=== PATIENT | male | born 1960 | race Caucasian/White ===

== ENCOUNTER 2020-04-17 14:41 | Outpatient (REF) | payer OTHER, SELFPAY ==
--- NOTE | 2020-04-17 14:42 | XR_ITS ---
EXAMINATION: BILATERAL AP KNEE STANDING AND LEFT KNEE.. RIGHT KNEE. CLINICAL INFORMATION: Bilateral knee pain COMPARISON: Bilateral knee 07/07/2019 TECHNIQUE: AP bilateral knee and one view of each knee. FINDINGS: There is total bilateral knee arthroplasty with prosthetic components in satisfactory alignment. Endometrial is bodies or fracture. There is no prosthetic loosening. RIGHT KNEE: Total right knee prosthesis is in alignment without any evidence of loosening. No loose bodies seen. There is mild suprapatellar joint effusion. LEFT KNEE: There is total left knee arthroplasty with prosthetic components in satisfactory alignment. There is minimal suprapatellar joint effusion. No loose body seen. XR/XR knee standing BI IMPRESSION: Total bilateral knee arthroplasty in satisfactory alignment. No loosening seen. There is small to moderate right and a small left suprapatellar joint effusion.
--- NOTE | 2020-04-17 14:42 | XR_ITS ---
EXAMINATION: BILATERAL AP KNEE STANDING AND LEFT KNEE.. RIGHT KNEE. CLINICAL INFORMATION: Bilateral knee pain COMPARISON: Bilateral knee 07/07/2019 TECHNIQUE: AP bilateral knee and one view of each knee. FINDINGS: There is total bilateral knee arthroplasty with prosthetic components in satisfactory alignment. Endometrial is bodies or fracture. There is no prosthetic loosening. RIGHT KNEE: Total right knee prosthesis is in alignment without any evidence of loosening. No loose bodies seen. There is mild suprapatellar joint effusion. LEFT KNEE: There is total left knee arthroplasty with prosthetic components in satisfactory alignment. There is minimal suprapatellar joint effusion. No loose body seen. XR/XR knee LT 2V IMPRESSION: Total bilateral knee arthroplasty in satisfactory alignment. No loosening seen. There is small to moderate right and a small left suprapatellar joint effusion.
--- NOTE | 2020-04-17 14:42 | XR_ITS ---
EXAMINATION: BILATERAL AP KNEE STANDING AND LEFT KNEE.. RIGHT KNEE. CLINICAL INFORMATION: Bilateral knee pain COMPARISON: Bilateral knee 07/07/2019 TECHNIQUE: AP bilateral knee and one view of each knee. FINDINGS: There is total bilateral knee arthroplasty with prosthetic components in satisfactory alignment. Endometrial is bodies or fracture. There is no prosthetic loosening. RIGHT KNEE: Total right knee prosthesis is in alignment without any evidence of loosening. No loose bodies seen. There is mild suprapatellar joint effusion. LEFT KNEE: There is total left knee arthroplasty with prosthetic components in satisfactory alignment. There is minimal suprapatellar joint effusion. No loose body seen. XR/XR knee RT 2V IMPRESSION: Total bilateral knee arthroplasty in satisfactory alignment. No loosening seen. There is small to moderate right and a small left suprapatellar joint effusion.
== END 2020-04-17 14:42 | disposition home or self-care (01) ==
LOC: HO.HOSX 14:41
PROVIDERS: PCP Internal Medicine; Visit Provider Orthopaedic Surgery
DX: M25.561 Pain in right knee (principal); M25.562 Pain in left knee; Z96.651 Presence of right artificial knee joint; Z96.652 Presence of left artificial knee joint
CPT/HCPCS: 73560; 73565; 99212

== ENCOUNTER 2021-04-17 12:33 | Outpatient (REF) | payer OTHER, SELFPAY | END 2021-04-17 12:34 | disposition home or self-care (01) | LOC: HO.HOSX 12:33 | PROVIDERS: Visit Provider Physician Assistant | DX: Z13.89 Encounter for screening for other disorder (principal) ==

== ENCOUNTER 2021-05-21 13:58 | Outpatient (REF) | payer OTHER, SELFPAY ==
[2021-05-21 18:58] LABS: Influenza A PCR NEGATIVE (Negative); Influenza B PCR NEGATIVE (Negative); Resp Syncy Virus RNA Qual PCR NEGATIVE (Negative); SARS COV2 PCR INHOUSE POSITIVE (Negative)
== END 2021-05-21 13:59 | disposition home or self-care (01) ==
LOC: HO.LAB 13:58
PROVIDERS: Visit Provider Hospitalist
DX: J06.9 Acute upper respiratory infection, unspecified (principal); Z20.822 Contact with and (suspected) exposure to COVID-19
CPT/HCPCS: 0241U

== ENCOUNTER → 2021-09-25 10:51 | Outpatient (BNVA) | payer OTHER, SELFPAY | PROVIDERS: Visit Provider Physician Assistant | DX: S76.312A Strain of muscle, fascia and tendon of the posterior muscle group at thigh level, left thigh, initial encounter (principal); S90.812A Abrasion, left foot, initial encounter; S90.811A Abrasion, right foot, initial encounter; W20.8XXA Other cause of strike by thrown, projected or falling object, initial encounter | CPT/HCPCS: 99203 ==

== ENCOUNTER → 2021-09-27 09:51 | Outpatient (BNVA) | payer OTHER, SELFPAY | PROVIDERS: Visit Provider Physician Assistant | DX: S76.312A Strain of muscle, fascia and tendon of the posterior muscle group at thigh level, left thigh, initial encounter (principal); S70.312A Abrasion, left thigh, initial encounter; S70.311A Abrasion, right thigh, initial encounter; X58.XXXA Exposure to other specified factors, initial encounter | CPT/HCPCS: 99213 ==

== ENCOUNTER 2022-05-19 04:38 | Emergency (ER) | payer OTHER, SELFPAY ==
--- NOTE | ~2022-05-19 | CT_ITS ---
EXAMINATION: CT ABDOMEN AND PELVIS WITHOUT CONTRAST CLINICAL INFORMATION: Left flank pain. COMPARISON: None TECHNIQUE: Multidetector volumetric imaging was performed from the superior aspect of the liver through the pubic symphysis. Sagittal and coronal reformatted images were obtained on the technologist's workstation. This CT examination was performed using dose optimization techniques as appropriate, variously including the following: *Automated exposure control *Adjustment of mA and/or kV according to patient size (this includes techniques or standardized protocols for targeted exams where dose is matched to indication/reason for exam; i.e. extremities or head) *Use of iterative reconstruction technique DLP: 898 mGy-cm FINDINGS: LUNG BASES: The visualized lung bases are unremarkable. LIVER, GALLBLADDER, AND BILIARY TREE: Hepatic steatosis. No focal liver lesions. No biliary dilatation. Gallbladder unremarkable. PANCREAS: Unremarkable. SPLEEN: Unremarkable. ADRENAL GLANDS: Unremarkable. KIDNEYS AND URETERS: There is a 2 mm calculus in the distal left ureter, 1 cm proximal to the ureterovesical junction associated mild upstream hydroureteronephrosis, periureteral and perinephric stranding. There are additional punctate nonobstructive intrarenal calculi numbering at least one within the left kidney and 3 within the right kidney. BLADDER: Unremarkable. GASTROINTESTINAL TRACT: Mild wall thickening of the distal esophagus and adjacent 6 mm lymph node, likely reactive. The small and large bowel are unremarkable. The appendix is unremarkable. ABDOMINAL WALL: No significant hernia is appreciated. LYMPH NODES: Normal. VASCULAR: Aorta is atherosclerotic but normal caliber. PELVIC VISCERA: Unremarkable. OSSEOUS STRUCTURES: No acute or suspicious osseous abnormalities. Degenerative changes present throughout the lumbar spine, most notably at L1-L2 and L2-L3. CT/CT abdomen pelvis wo IV con IMPRESSION: * There is a 2 mm calculus within the distal LEFT ureter, 1 cm proximal to the ureterovesical junction associated mild upstream hydroureteronephrosis, periureteral and perinephric stranding. * Bilateral nonobstructive punctate intrarenal calculi. * Hepatic steatosis. * Query esophagitis.
[2022-05-19 04:52] VITALS: BP 163/73; PULSE 64; RESP 28; TEMP 36.4; O2SAT 98; BMI 31.4
[2022-05-19 05:07] LABS: Appearance Urine Cloudy; Color Urine Yellow; Glucose Urine UA Negative (Negative); Leukocyte Esterase Urine Negative (Negative); Nitrite Urine Negative (Negative); Specific Gravity - Urine 1.025 (1.005-1.025); UMIC TRIGGER UACC YES; Urine Blood Large (3+) (Negative); Urine Ketones Negative (Negative); Urine Protein Trace mg/dL (Neg-Trace)
[2022-05-19 05:09] LABS: Bacteria Urine None Seen (None Seen); Hyaline Casts Urine 0-2 /LPF (0-2); RBC Urine >20 /HPF (0-2); Squamous Epithelial Cell Urine 0-2 /HPF (0-2); WBC Urine 0-5 /HPF (0-5)
[2022-05-19 05:22] LABS: Hematocrit 46.7 % (42.0-52.0); Hemoglobin 15.3 g/dl (14.0-18.0); Mean Corpuscular HGB Conc 32.8 g/dl (31.0-36.0); Mean Corpuscular Hemoglobin 28.3 pg (27.0-33.0); Mean Corpuscular Volume 86.3 fL (80.0-98.0); Mean Platelet Volume 8.7 fL (9.4-12.4); Platelet Count 269 X10*3/uL (160-400); Red Blood Count 5.41 X10*6/uL (4.60-5.80); Red Cell Distribution Width 14.3 % (11.0-16.0); White Blood Count 13.9 X10*3/uL (4.8-10.8)
[2022-05-19] MEDS: Ketorolac Tromethamine 15 MG/ML VIAL IVPUSH (05:45)
[2022-05-19] MEDS: 0.9 % Sodium Chloride 1,000 ML 999 ML IV (05:45)
[2022-05-19] MEDS: ondansetron HCL 4 MG/2 ML VIAL IVPUSH (05:45)
[2022-05-19 05:47] LABS: Alanine Aminotransferase 31 U/L (0-40); Albumin Level 4.6 g/dL (3.5-5.0); Alkaline Phosphatase 47 U/L (39-117); Anion Gap 17 (12-20); Aspartate Amino Transferase 25 U/L (5-37); Bilirubin Direct 0.2 mg/dL (0.0-0.5); Bilirubin Total 0.6 mg/dL (0.0-1.0); Blood Urea Nitrogen 23 mg/dL (9-16); Calcium 9.6 mg/dL (8.4-10.2); Carbon Dioxide 20 mmol/L (22-29); Chloride 106 mmol/L (96-108); Creatinine Clr Calc Pharmacy 67.4; Estimated Glomerular Filt Rate 52; Glucose Random 168 mg/dL (60-115); Lipase 22 U/L (8-78); Potassium 4.2 mmol/L (3.3-5.1); Sodium 139 mmol/L (135-145)
--- OUTSIDE RECORDS SUMMARY | 2022-05-19 05:59 | XMS_ITS | Continuity of Care Document ---
:1960 Author Organization [facility] Address [address] [place] [address]- Care Team Providers Name Role Phone Arya Merino MD Primary Care Physician Encounter [facility] Date(s): 04/10/20 - 05/10/20 [facility] [address] [place] [address]- Attending Physician: Admtr, Ar8 Allergies, Adverse Reactions, Alerts Substance Reaction Severity Status Pollen Active Immunizations Given and Recorded Vaccine Date Status Refusal Reason influenza virus vaccine, inactivated 03/06/20 Given influenza virus vaccine, inactivated 02/14/19 Given influenza virus vaccine, inactivated 03/12/18 Given influenza virus vaccine, inactivated1 02/18/17 Given influenza virus vaccine, inactivated 03/17/16 Given influenza virus vaccine, inactivated 03/12/15 Given influenza virus vaccine, inactivated 03/03/14 Given influenza virus vaccine, inactivated 02/24/13 Given tetanus/diphtheria/pertussis, acel(Tdap) 07/15/12 Given FluLaval (oldterm)2 01/20/12 Given FluLaval (oldterm)3 02/28/10 Given Tetanus Toxoid Vaccine (oldterm) 05/18/03 Given 1Result Comment: [02/18/2017] [id number] Note: Access Closure3 Admin Note: Access Closure Medications acetaminophen-HYDROcodone 325 mg-5 mg oral tablet 1 tablet, By Mouth, Every 6 hours, PRN as needed for pain, # 30 tablet, 0 Refills, Maintenance, 04/10/20 10:05:00 EST, Tablet, [id number], Partial fill upon patient request, 1 tablet By Mouth Every 6 hours,PRN:as needed for pain, 181, cm, 11/2... Start Date: 04/10/20 Status: OrderedCeleBREX 200 mg oral capsule 1 capsule = 200 mg, By Mouth, Daily, for 90 days, # 90 capsule, 3 Refills, Hard Stop 03/01/21 15:41:00 EDT, 03/06/20 15:41:00 EDT, Capsule, [facility], 181, cm, 03/06/20 15:09:00 EDT, Height Start Date: 03/06/20 Stop Date: 03/01/21 Status: OrderedTylenol 325 mg oral tablet 650 mg, 2, tablet, By Mouth, Every 4 hours, PRN, prn for pain, # 120 tablet, Refills 0, Maintenance,for pain, 04/15/16 15:06:48 Start Date: 04/15/16 Status: Ordered Problem List Condition Effective Dates Status Health Status Informant Allergic rhinitis(Confirmed) Active Anxiety(Confirmed) Active Cervical spondylosis(Confirmed) Active Chronic low back pain(Confirmed) Active Colonoscopy(Confirmed)1 Active Glucose intolerance(Confirmed) Active Erectile dysfunction(Confirmed) 06/07/10 Active 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(Confirmed) 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 Arshad Social History Social History Type Response Smoking Status Never smoker entered on: 03/17/16 Sex
--- OUTSIDE RECORDS SUMMARY | 2022-05-19 05:59 | XMS_ITS | Continuity of Care Document ---
:1960 Author Organization [facility] Address [address] [place] [phone]- Care Team Providers Name Role Phone Arya Merino MD Primary Care Physician Encounter [facility] Date(s): 08/09/21 - 09/08/21 [facility] [address] [place] [id number]- Allergies, Adverse Reactions, Alerts Substance Reaction Severity Status Pollen Active Immunizations Given and Recorded Vaccine Date Status Refusal Reason influenza virus vaccine, inactivated 03/26/21 Given influenza virus vaccine, inactivated 03/06/20 Given influenza virus vaccine, inactivated 02/14/19 Given influenza virus vaccine, inactivated 03/12/18 Given influenza virus vaccine, inactivated1 02/18/17 Given influenza virus vaccine, inactivated 03/17/16 Given influenza virus vaccine, inactivated 03/12/15 Given influenza virus vaccine, inactivated 03/03/14 Given influenza virus vaccine, inactivated 02/24/13 Given SARS-CoV-2 (COVID-19) mRNA-1273 vaccine 09/13/20 Recorded SARS-CoV-2 (COVID-19) mRNA-1273 vaccine 08/14/20 Recorded tetanus/diphtheria/pertussis, acel(Tdap) 07/15/12 Given FluLaval (oldterm)2 01/20/12 Given FluLaval (oldterm)3 02/28/10 Given Tetanus Toxoid Vaccine (oldterm) 05/18/03 Given 1Result Comment: [02/18/2017] [id number] Note: [employer] Admin Note: [employer] Medications acetaminophen 500 mg oral capsule 2 capsule = 1,000 mg, By Mouth, Every 6 hours, PRN for fever, # 120 capsule, 0 Refills, Maintenance,09/17/20 15:24:00 EDT, Capsule, Partial fill upon patient request if the prescription is for a schedule II opioid drug. Start Date: 09/17/20 Status: OrderedCeleBREX 200 mg oral capsule 1 capsule = 200 mg, By Mouth, 2 times a day, for 90 days, # 180 capsule, 3 Refills, Hard Stop 03/21/22 15:26:00 EDT, 03/26/21 15:26:00 EST, Capsule, [facility], 181, cm, 03/26/21 15:08:00 EST, Height Start Date: 03/26/21 Stop Date: 03/21/22 Status: Ordered Problem List Condition Effective Dates Status Health Status Informant Allergic rhinitis(Confirmed) Active Anxiety(Confirmed) Active Cervical spondylosis(Confirmed) Active Chronic low back pain(Confirmed) Active Colonoscopy(Confirmed)1 Active Glucose intolerance(Confirmed) Active Erectile dysfunction(Confirmed) 06/07/10 Active 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 Arshad Social History Social History Type Response Smoking Status Never smoker entered on: 03/17/16 Sex
--- OUTSIDE RECORDS SUMMARY | 2022-05-19 05:59 | XMS_ITS | Continuity of Care Document ---
:1960 Author Organization [facility] Address [address] [place] [address]- Care Team Providers Name Role Phone Arya Merino MD Primary Care Physician [place] [facility] [place] 04[place]05[place]19 [place] 05/11/19 [facility] [address] [place] [address]- [facility] Attending Physician: Easton Brooke MD, I Admitting Physician: Easton Brooke MD, I Referring Physician: Easton Brooke MD, I Allergies, Adverse Reactions, Alerts Substance Reaction Severity Status Pollen Active Immunizations Given and Recorded Vaccine Date Status Refusal Reason influenza virus vaccine, inactivated 02/14/19 Given influenza virus vaccine, inactivated 03/12/18 Given influenza virus vaccine, inactivated1 02/18/17 Given influenza virus vaccine, inactivated 03/17/16 Given influenza virus vaccine, inactivated 03/12/15 Given influenza virus vaccine, inactivated 03/03/14 Given influenza virus vaccine, inactivated 02/24/13 Given tetanus/diphtheria/pertussis, acel(Tdap) 07/15/12 Given FluLaval (oldterm)2 01/20/12 Given FluLaval (oldterm)3 02/28/10 Given Tetanus Toxoid Vaccine (oldterm) 05/18/03 Given 1Result Comment: [02/18/2017] [id number] Note: [employer] Admin Note: [employer] Medications aspirin 325 mg oral tablet 325 mg, 1, tablet, By Mouth, Every 4 hours, Refills 0, Maintenance, 05/02/19 13:12:07 EST Start Date: 05/02/19 Status: OrderedCeleBREX 200 mg oral capsule 1 capsule = 200 mg, By Mouth, Daily, for 90 days, # 90 capsule, 3 Refills, Hard Stop 07/29/19 15:49:57 EDT, 08/03/18 15:49:57 EDT, Capsule Start Date: 08/03/18 Stop Date: 07/29/19 Status: OrderedoxyCODONE 10 mg oral tablet 1 tablet = 10 mg, By Mouth, Every 6 hours, 0 Refills, Maintenance, 05/02/19 13:11:35 EST, Partial fill upon patient request Start Date: 05/02/19 Status: OrderedTylenol 325 mg oral tablet 650 [...] dysfunction(Confirmed) 06/07/10 Active 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(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 Arshad Social History Social History Type Response Smoking Status Never smoker entered on: 03/17/16 Sex
--- OUTSIDE RECORDS SUMMARY | 2022-05-19 05:59 | XMS_ITS | Continuity of Care Document ---
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 Arshad Social History Social History Type Response Smoking Status Never smoker entered on: 03/17/16 Sex
--- OUTSIDE RECORDS SUMMARY | 2022-05-19 05:59 | XMS_ITS | Continuity of Care Document ---
:1960 Author Organization [facility] Address [address] [place] [phone]- Care Team Providers Name Role Phone Arya Merino MD Primary Care Physician Encounter [facility] [place] Date(s): 11/30/19 - 11/30/[address] [address] [facility] Encounter Diagnosis Left low back pain (Final) - 11/30/19 Discharge Disposition: A-D/C Home Attending Physician: Jf Silva DO Admitting Physician: Jf Silva DO Referring Physician: Not on Staff, Referring MD Allergies, Adverse Reactions, Alerts Substance Reaction Severity [...] Vaccine (oldterm) 05/18/03 Given 1Result Comment: [02/18/2017] [id number] Note: [employer] Admin Note: [employer] Medications CeleBREX 200 mg oral capsule 1 capsule = 200 mg, By Mouth, Daily, for 90 days, # 90 capsule, 1 Refills, Hard Stop 06/17/20 9:44:00 EST, 12/20/19 9:44:00 EDT, Capsule, [facility], 181, cm, 05/02/19 12:59:00 EST, Height Start Date: 12/20/19 Stop Date: 06/17/20 Status: OrderedCeleBREX 200 mg oral capsule 1 capsule = 200 mg, By Mouth, Daily, for 90 days, # 90 capsule, 1 Refills, Hard Stop 12/20/19 9:44:00 EDT, 06/23/19 9:44:00 EST, Capsule, [facility], 181, cm, 05/02/19 12:59:00 EST, Height Start Date: 06/23/19 Stop Date: 12/20/19 Status: Orderedlidocaine 5% topical film 1 patch, Topically, Daily, # 10 patch, 0 Refills, Maintenance, 11/30/19 9:12:00 EDT, [id number], 1 patch Topically Daily, 181, cm, 05/02/19 12:59:00 EST, Height Start Date: 11/30/19 Status: OrderedTylenol 325 mg oral tablet 650 [...] dysfunction(Confirmed) 06/07/10 Active 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 Instrum Vital Signs Most recent to oldest 1 2 3 [Reference Range]: Oxygen Saturation [94-100 %] 100 % 98 % 99 % (11/30/19 8:42 AM) (11/30/19 5:58 AM) (11/30/19 3:2 7 AM) Pulse Rate [55-90 bpm] 64 bpm 81 bpm 78 bpm (11/30/19 8:42 AM) (11/30/19 5:58 AM) (11/30/19 3:2 7 AM) Blood Pressure [90-138/55-84 mm 150/87 mm Hg 151/88 mm Hg 144/92 mm Hg Hg] *H* *H* *H* (11/30/19 8:42 AM) (11/30/19 5:58 AM) (11/30/19 3:2 7 AM) Respiratory Rate [16-30 br/min] 20 br/min 18 br/min 16 br/min (11/30/19 8:42 AM) (11/30/19 5:58 AM) (11/30/19 3:2 7 AM) Temperature [96.8-100.4 DegF] 97.8 DegF 97.7 DegF 98 .1 DegF (11/30/19 8:42 AM) (11/30/19 5:58 AM) (11/30/19 3:2 7 AM) Mode of Delivery (Oxygen) Room air Room air Room a ir (11/30/19 8:42 AM) (11/30/19 5:58 AM) (11/30/19 3:2 7 AM) Blood pressure sites Arm, left Arm, left Arm, right (11/30/19 8:42 AM) (11/30/19 5:58 AM) (11/30/19 3:2 7 AM) Temperature Route Oral Oral Oral (11/30/19 8:42 AM) (11/30/19 5:58 AM) (11/30/19 3:2 7 AM) Social History Social History Type Response Smoking Status Never smoker entered on: 03/17/16 Sex
--- OUTSIDE RECORDS SUMMARY | 2022-05-19 05:59 | XMS_ITS | Continuity of Care Document ---
:1960 Author Organization [facility] Address [address] [place] [address]- Care Team Providers Name Role Phone Arya Merino MD Primary Care Physician [place] [facility] [place] [facility] [address] [place] [address]- Encounter Diagnosis Chronic low back pain (Discharge Diagnosis) - 04/30/22 Cervical spondylosis (Discharge Diagnosis) - 04/30/22 Benign hypertension (Discharge Diagnosis) - 04/30/22 Anxiety (Discharge Diagnosis) - 04/30/22 Attending Physician: Arya Merino MD Allergies, Adverse Reactions, Alerts Substance Reaction Severity Status Pollen Active Immunizations Given and Recorded Vaccine Date Status Refusal Reason influenza virus vaccine, inactivated 03/04/22 Given influenza virus vaccine, inactivated 03/26/21 Given influenza virus vaccine, inactivated 03/06/20 Given influenza virus vaccine, inactivated 02/14/19 Given influenza virus vaccine, inactivated 03/12/18 Given influenza virus vaccine, inactivated1 02/18/17 Given influenza virus vaccine, inactivated 03/17/16 Given influenza virus vaccine, inactivated 03/12/15 Given influenza virus vaccine, inactivated 03/03/14 Given influenza virus vaccine, inactivated 02/24/13 Given zoster vaccine, inactivated 05/20/21 Recorded SARS-CoV-2 (COVID-19) mRNA-1273 vaccine 05/20/21 Recorded SARS-CoV-2 (COVID-19) mRNA-1273 vaccine 09/13/20 Recorded SARS-CoV-2 (COVID-19) mRNA-1273 vaccine 09/12/20 Recorded SARS-CoV-2 (COVID-19) mRNA-1273 vaccine 08/14/20 Recorded SARS-CoV-2 (COVID-19) mRNA-1273 vaccine 08/10/20 Recorded tetanus/diphtheria/pertussis, acel(Tdap) 07/15/12 Given FluLaval (oldterm)2 01/20/12 Given FluLaval (oldterm)3 02/28/10 Given Tetanus Toxoid Vaccine (oldterm) 05/18/03 Given 1Result Comment: [02/18/2017] [id number] Note: Jumb[employer]3 Admin Note: [employer] [facility] [place] Medications acetaminophen 500 mg oral capsule 2 capsule = 1,000 mg, By Mouth, Every 6 hours, PRN for fever, # 120 capsule, 0 Refills, Maintenance,09/17/20 15:24:00 EDT, Capsule, Partial fill upon patient request if the prescription is for a schedule II opioid drug. Start Date: 09/17/20 Status: Orderedatorvastatin 40 mg oral tablet 1 tablet = 40 mg, By Mouth, Daily, # 90 tablet, 3 Refills, Maintenance, 03/04/22 16:54:00 EDT, Tablet, [facility]/pharmacy #[id number], Partial fill upon patient request if the prescription is for a schedule II opioid drug., 181, cm, 03/04/22 16:36:00 EDT, Height Start Date: 03/04/22 Status: Orderedazelastine nasal 0.15% spray 2 sprays, Nares, Both, 2 times a day, PRN for allergy symptoms, # 30 mL, 11 Refills, Maintenance, 03/04/22 16:51:00 EDT, [place], [facility]/pharmacy #[id number], Partial fill upon patient request if the prescriptionis for a schedule II opioid drug., 2 sprays Nares... Start Date: 03/04/22 Status: OrderedbusPIRone 7.5 mg oral tablet 1 tablet = 7.5 mg, By Mouth, 2 times a day, # 60 tablet, 2 Refills, Maintenance, 04/30/22 15:28:00 EST, Tablet, [id number], Partial fill upon patient request if the prescription is for a schedule II opioid drug., 181, cm, 04/30/22 15:05:00 EST... Start Date: 04/30/22 Stop Date: 07/29/22 Status: OrderedcloNIDine 0.2 mg oral tablet 0.2 mg, 1, tablet, By Mouth, 2 times a day, # 180 tablet, Refills 3, Tot. Refills 3, Maintenance, 04/02/22 16:43:00 EST, [id number] Partial fill upon patient request if the prescription is for a schedule II o... Start Date: 04/02/22 Status: OrderedFlonase 50 mcg/inh nasal spray 2 sprays, Nares, Both, Daily in AM, # 16 Gm, 11 Refills, Maintenance, 03/04/22 16:52:00 EDT, [place], [facility]/pharmacy #[id number], Partial fill upon patient request if the prescription is for a schedule II opioiddrug., 2 sprays Nares, Both Daily in AM, 181, cm,... Start Date: 03/04/22 Status: OrderedhydrOXYzine hydrochloride 25 mg oral tablet 1 tablet = 25 mg, By Mouth, 4 times a day, PRN for anxiety, # 40 tablet, 1 Refills, Maintenance, 04/30/22 15:28:00 EST, [id number] Partial fill upon patient request if the prescriptionis for a schedule II opioid drug., 181, cm, 04/30... Start Date: 04/30/22 Status: Orderedmeloxicam 15 mg oral tablet 1 tablet = 15 mg, By Mouth, Daily, # 90 tablet, 3 Refills, Maintenance, 04/02/22 16:43:00 EST, Tablet, [facility] Partial fill upon patient request if the prescription is for a schedule II opioid drug., 181, cm, ... Start Date: 04/02/22 Stop Date: 03/28/23 Status: Ordered Problem List Condition Confirmation Course Effective Status Health Informa nt Dates Status Allergic rhinitis Confirmed Active Anxiety Confirmed Active Benign hypertension Confirmed Active Cervical spondylosis Confirmed Active Chronic low back pain Confirmed Active Colonoscopy1 Confirmed Active Generalized Confirmed Active osteoarthritis Glucose intolerance Confirmed Active Erectile dysfunction Confirmed 06/07/10 Active 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 Confirmed Active MCFP current use of Confirmed Active opiate analgesic History of meniscal tear2 Confirmed Active History of total knee Confirmed Active arthroplasty3 Hx of repair of left Confirmed Active rotator cuff Hypercholesterolemia Confirmed Active Ingrown toenail Confirmed Active Knee pain, right Confirmed Active Nephrolithiasis Confirmed Active Obesity Confirmed Active Osteoarthritis of right Confirmed Active knee Osteoarthritis of left Confirmed Active knee Biceps tendon rupture Confirmed Active Severe obesity (BMI Confirmed Active 35.0-39.9) with comorbidity Pain in right shoulder Confirmed Active 1colo 2011 nl repeat [id number] post 2 surgeries on right knee, most recent 2012.3Rld - Dr. Arshad Diagnosis Diagnosis Type Effective Dates Health Clinical Infor [facility] Status Service Chronic low back Discharge 04/30/22 pain Diagnosis Cervical Discharge 04/30/22 spondylosis Diagnosis Benign hypertension Discharge 04/30/22 Diagnosis Anxiety Discharge 04/30/22 Diagnosis Vital Signs Most recent to oldest [Reference Range]: 1 Height 181 cm (04/30/22 3:05 PM) Weight 120.5 kg (04/30/22 3:05 PM) Oxygen Saturation [94-100 %] 98 % (04/30/22 3:05 PM) Pulse Rate [55-90 bpm] 85 bpm (04/30/22 3:05 PM) Body Mass Index [18.5-24.99 kg/m2] 36.78 kg/m2 *>HHI* (04/30/22 3:05 PM) Blood Pressure [90-138/55-84 mm Hg] 137/69 mm Hg (04/30/22 3:05 PM) Mode of Delivery (Oxygen) Room air (04/30/22 3:05 PM) Blood pressure sites Arm, left (04/30/22 3:05 PM) Weight Obtained Via Standing scale (04/30/22 3:05 PM) Social History Social History Type Response Smoking Status Never smoker entered on: 03/17/16 Sex Note Apryl [place]: PERFORM, SIGN, VERIFY Event Display: Patient Education/Instruction Authored Date: [id number] [facility] *BMP So aJyme Page Clinical Summary Name EBEN CABA Age 61 Years 1960 PCP Arya Merino MD PCP Visit Date 04/30/2022 14:50:00 Additional Instructions: Scheduled Appointments?? Future Appointments ?No Future Appointments Scheduled Follow-Up Instructions ?? With: Address: When: Arya Merino MD In 2 months Diagnosis Spondylosis without myelopathy or radiculopathy, cervical region; Low back pain; Essential (primary)hypertension; Anxiety disorder, unspecified Medications: Please continue your medications until treatment is completed or stopped by your provider. Discuss any questions related to medications with your provider. New Medications [facility]/pharmacy #[id number], [address] [place] [id number], [phone] BusPIRone (busPIRone 7.5 mg oral tablet) 1 tab(s) Oral twice a day for 30 Days. Refills: 2. Next Dose: HydrOXYzine (hydrOXYzine hydrochloride 25 mg oral tablet) 1 tab(s) Oral 4 times a day as needed for anxiety. Refills: 1. Next Dose: Medications to Continue with No Changes These medications were not printed or sent to your pharmacy Acetaminophen (acetaminophen 500 mg oral capsule) 2 capsule Oral every 6 hours as needed for fever. Next Dose: Atorvastatin (atorvastatin 40 mg oral tablet) 1 tab(s) Oral Daily. Refills: 3. Next Dose: Azelastine Nasal (azelastine nasal 0.15% spray) 2 spray(s) Nares, Both twice a day as needed for allergy symptoms. Refills: 11. Next Dose: Clonidine (cloNIDine 0.2 mg oral tablet) 1 tab(s) Oral twice a day. Refills: 3. Next Dose: Fluticasone Nasal (Flonase 50 mcg/inh nasal spray) 2 spray(s) Nares, Both Daily in the morning. Refills: 11. Next Dose: Meloxicam (meloxicam 15 mg oral tablet) 1 tab(s) Oral Daily for 90 Days. Refills: 3. Next Dose: Allergy Info:?? Pollen Medications Given This Visit Future Orders ?No future orders Vital Signs Height 181 cm Weight 120.5 kg BMI 36.78 kg/m2 Blood Pressure 137 mm Hg/69 mm Hg Temperature Pulse Rate 85 bpm Respiratory Rate 02 Sat Mode of Delivery 98 %/Room air You can now view a summary of your hospital visit from the comfort of your home through a free online portal called [employer]. [employer] is a website that allows you to securely view yourmedical information including discharge summary, medications and follow-up visits. ??You can also send a secure electronic message to your doctor???s office to request appointments, renew medications or just ask a question. You can enroll at [email or web address] or register during your next office visit. Disclaimer:?? The information provided is of a general nature and is intended to be used in conjunction with the recommendations and advice of your health care practitioner. ??Every effort has been made to ensure that the information provided is accurate and complete at the time it is provided to you however, as your needs change, or, as new ??information becomes available, different or additional instructions may be required. If you have questions, please consult with your primary care provider or pharmacist, as appropriate.??This information is not intended to serve as substitution for assessment and evaluation by a qualified health care provider. If you do not have a primary care provider, you may find a [facility] provider by calling [facility] [employer] at [phone]. For information about the plan of care including goals and instructions for your diagnosis, please see the patient education orders section of this document. Patient Education Materials?? The content of this educational material or handout may have been modified, supplemented, or adaptedfrom its original content and format to support your individualized medical care. Discharge Instructions: Eating a Low-Potassium Diet Your health care provider has prescribed a low-potassium diet for you. This kind of diet is advised for people who have certain kidney problems. Potassium is needed for muscle function. But too much potassium is a health risk. Potassium is found in many foods. Read below to find out how to change yourdiet. Foods to limit Some foods are high in potassium. Limit your daily intake of the foods in the list below. ??? Fruits:??apricots (canned and fresh), bananas, cantaloupe, honeydew melon, kiwi, nectarines, pomegranates, oranges, orange juice, pears, dried fruits (apricots, dates, figs, prunes), and prune juice ??? Vegetables: asparagus, avocado, artichoke, bamboo shoots, beets, brussels sprouts, cabbage, celery, chard, okra, potatoes (white and sweet), pumpkin, rutabaga, spinach (cooked), squash, tomato, tomato sauce, tomato juice, and vegetable juice cocktail ??? Legumes:??black-eyed peas, chickpeas, lentils, العلي beans, navy beans, red kidney beans, soybeans, and split peas ??? Nuts and seeds:??almonds, [place] nuts, cashews, peanuts, peanut butter, pecans, pumpkin seeds, sunflower seeds, and walnuts ??? Breads and cereals:??bran and whole-grain products ??? Dairy foods: milk, cheese, ice cream, yogurt ??? Animal protein: all forms of animal protein ??? Other:??chocolate, cocoa, coconut milk, and molasses Tips ??? Ask your health care provider how much potassium you are allowed each day. This will help you figure out serving sizes for your needs. ??? Check labels for potassium. It may be listed as potassium chloride. ??? Do not use salt substitutes. These often have potassium in them. ??? Cook frozen fruits and vegetables in water. Rinse and drain them well before eating. ??? Drain liquid from all canned fruits and vegetables. Rinse them before eating. ??? Reduce the potassium in potatoes. Peel them, slice thinly, and soak in water for at least 4 hours. ??? Reduce the potassium in green leafy vegetables. Soak them in water for at least 4 hours. ??? Eat white rice and refined white flour products. These include white bread, pasta, and grits. Follow-up Make a follow-up appointment as advised by our staff. When to call your health care provider Call your health care provider right away if you have any of the following: ??? Fatigue ??? Shortness of breath ??? Chest pain ??? Slow, irregular heartbeat ??? Fainting ??? Dizziness ??? Lightheadedness ??? Confusion ?? [phone] [employer] [place] [address], [place] [address]. All rights reserved. This information is not intended as a substitute for professional medical care. Always follow your healthcare professional's instructions. Patient Care team information Care Team PersonnelName: Arya Merino MD Position: S Primary Care Physician Member Role: PCP Address: Address: [address] [place] [address]- Care Team Related PersonsName: AUTUMN LAZARO Address: [place] [address] Name: ALEXIS ARGUELLES Address: home [address] [place] [address] Name: JESSICA CABA Address: [address] [address]
--- OUTSIDE RECORDS SUMMARY | 2022-05-19 05:59 | XMS_ITS | Continuity of Care Document ---
:1960 Author Organization [facility] Address [address] [place] [address]- Care Team Providers Name Role Phone Arya Merino MD Primary Care Physician Encounter [facility] [place] Date(s): 07/30/21 - 11/27/21 [facility] [address] [place] [address]- Attending Physician: Arya Merino MD Allergies, Adverse [...] Vaccine (oldterm) 05/18/03 Given 1Result Comment: [02/18/2017] [id number] Note: [id number] Admin Note: 55social Medications acetaminophen 500 mg oral capsule 2 [...] dysfunction(Confirmed) 06/07/10 Active 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(Confirmed) Active assisted current use of opiate Active analgesic(Confirmed) History of meniscal tear(Confirmed)2 Active History of total knee Active arthroplasty(Confirmed)3 Hx of repair of left rotator Active cuff(Confirmed) Hypercholesterolemia(Confirmed) Active Ingrown toenail(Confirmed) Active Knee pain, right(Confirmed) Active Nephrolithiasis(Confirmed) Active Obesity(Confirmed) Active Osteoarthritis of right Active knee(Confirmed) Osteoarthritis of left knee(Confirmed) Active Biceps tendon rupture(Confirmed) Active Pain in right shoulder(Confirmed) Active 1colo 2011 nl repeat [id number] post 2 surgeries on right knee, most recent 2012.3Rld - Dr. Arshad Social History Social History Type Response Smoking Status Never smoker entered on: 03/17/16 Sex
--- OUTSIDE RECORDS SUMMARY | 2022-05-19 05:59 | XMS_ITS | Continuity of Care Document ---
:1960 Author Organization [facility] Address [address] [place] [address]- Care Team Providers Name Role Phone Arya Merino MD Primary Care Phys[place] [facility] [place] [facility] [address] [place] [address]- [facility] Encounter Diagnosis Cervical spondylosis (Discharge Diagnosis) - 08/22/19 Chronic low back pain (Discharge Diagnosis) - 08/22/19 Glucose intolerance (Discharge Diagnosis) - 08/22/19 Hypercholesterolemia (Discharge Diagnosis) - 08/22/19 Obesity (Discharge Diagnosis) - 08/22/19 History of total knee arthroplasty (Discharge Diagnosis) - 08/22/19 Attending Physician: Arya Merino MD Allergies, Adverse [...] Vaccine (oldterm) 05/18/03 Given 1Result Comment: [02/18/2017] [id number] Note: [employer] Admin Note: [employer] Medications CeleBREX 200 mg oral capsule 1 capsule = 200 mg, By Mouth, Daily, for 90 days, # 90 capsule, 1 Refills, Hard Stop 12/20/19 9:44:00 EDT, 06/23/19 9:44:00 EST, Capsule, [facility], 181, cm, 05/02/19 12:59:00 EST, Height Start Date: 06/23/19 Stop Date: 12/20/19 Status: OrderedTylenol 325 mg oral tablet 650 [...] dysfunction(Confirmed) 06/07/10 Active 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(Confirmed) Active MCFP current use of opiate Active analgesic(Confirmed) History of meniscal tear(Confirmed)2 Active History of total knee Active arthroplasty(Confirmed)3 Hx of repair of left rotator Active cuff(Confirmed) Hypercholesterolemia(Confirmed) Active Ingrown toenail(Confirmed) Active Knee pain, right(Confirmed) Active Nephrolithiasis(Confirmed) Active Obesity(Confirmed) Active Osteoarthritis of right Active knee(Confirmed) Osteoarthritis of left knee(Confirmed) Active Biceps tendon rupture(Confirmed) Active 1colo 2011 nl repeat [id number] post 2 surgeries on right knee, most recent 2012.3Rld - Dr. Arshad Diagnosis Diagnosis Type Effective Health Clinical Informant Dates Status Service Cervical spondylosis Discharge 08/22/19 Diagnosis Chronic low back pain Discharge 08/22/19 Diagnosis Glucose intolerance Discharge 08/22/19 Diagnosis Hypercholesterolemia Discharge 08/22/19 Diagnosis Obesity Discharge 08/22/19 Diagnosis History of total knee Discharge 08/22/19 arthroplasty Diagnosis Social History Social History Type Response Smoking Status Never smoker entered on: 03/17/16 Sex
--- OUTSIDE RECORDS SUMMARY | 2022-05-19 05:59 | XMS_ITS | Continuity of Care Document ---
:[address] [facility] Address [address] [place] [address]- Care Team Providers Name Role Phone Arya Merino MD Primary Care Physician Encounter [facility] Date(s): 04/09/20 - 05/09/20 [facility] [address] [place] [address]- Allergies, Adverse Reactions, Alerts Substance Reaction Severity [...] Vaccine (oldterm) 05/18/03 Given 1Result Comment: [02/18/2017] [id number] Note: [employer] Admin Note: [employer] Medications acetaminophen-HYDROcodone 325 mg-5 mg oral tablet 1 tablet, By Mouth, Every 6 hours, PRN as needed for pain, # 30 tablet, 0 Refills, Maintenance, 04/10/20 10:05:00 EST, Tablet, [id number], Partial fill upon patient request, 1 tablet By Mouth Every 6 hours,PRN:as needed for pain, 181, cm, 03/19... Start Date: 04/10/20 Status: OrderedCeleBREX 200 mg [...] dysfunction(Confirmed) 06/07/10 Active 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(Confirmed) Active long-term current use of opiate Active analgesic(Confirmed) History of meniscal tear(Confirmed)2 Active History of total knee Active arthroplasty(Confirmed)3 Hx of repair of left rotator Active cuff(Confirmed) Hypercholesterolemia(Confirmed) Active Ingrown toenail(Confirmed) Active Knee pain, right(Confirmed) Active Nephrolithiasis(Confirmed) Active Obesity(Confirmed) Active Osteoarthritis of right Active knee(Confirmed) Osteoarthritis of left knee(Confirmed) Active Biceps tendon rupture(Confirmed) Active Pain in right shoulder(Confirmed) Active 1colo 2011 nl repeat [id number] post 2 surgeries on right knee, most recent 2012.3Right - Dr. Arshad Social History Social History Type Response Smoking Status Never smoker entered on: 03/17/16 Sex
--- OUTSIDE RECORDS SUMMARY | 2022-05-19 05:59 | XMS_ITS | Continuity of Care Document ---
:1960 Author Organization [facility] Address [address] [place] [address]- Care Team Providers Name Role Phone Arya Merino MD Primary Care Physician [place] [facility] [place] 05/02/19 - 05/09/19 [facility] [address] [place] [address] Attending Physician: Jaclyn Worthy NP Referring Physician: Arya Merino MD Allergies, Adverse Reactions, [...] Vaccine (oldterm) 05/18/03 Given 1Result Comment: [02/18/2017] [id number] Note: [employer] Admin Note: [employer] Medications aspirin 325 mg oral tablet 325 [...] dysfunction(Confirmed) 06/07/10 Active 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(Confirmed) Active senior care current use of opiate Active analgesic(Confirmed) History of meniscal tear(Confirmed)2 Active History of total knee Active arthroplasty(Confirmed)3 Hx of repair of left rotator Active cuff(Confirmed) Hypercholesterolemia(Confirmed) Active Ingrown toenail(Confirmed) Active Knee pain, right(Confirmed) Active Nephrolithiasis(Confirmed) Active Obesity(Confirmed) Active Osteoarthritis of right Active knee(Confirmed) Osteoarthritis of left knee(Confirmed) Active Biceps tendon rupture(Confirmed) Active 1colo 2011 nl repeat [id number] post 2 surgeries on right knee, most recent 2012.3Right - DrSandra Instrum Vital Signs Most recent to oldest [Reference Range]: 1 Height 181 cm (05/02/19 12:59 PM) Weight 117.3 kg (05/02/19 12:59 PM) Oxygen Saturation [94-100 %] 96 % (05/02/19 12:59 PM) Pulse Rate [55-90 bpm] 83 bpm (05/02/19 12:59 PM) Body Mass Index [18.5-24.99] 35.8 *>HHI* (05/02/19 12:59 PM) Blood Pressure [90-138/55-84 mm Hg] 138/82 mm Hg (05/02/19 12:59 PM) Temperature [96.8-100.4 DegF] 98.4 DegF (05/02/19 12:59 PM) Blood pressure sites Arm, right (05/02/19 12:59 PM) Temperature Route Oral (05/02/19 12:59 PM) Social History Social History Type Response Smoking Status Never smoker entered on: 03/17/16 Sex
--- OUTSIDE RECORDS SUMMARY | 2022-05-19 05:59 | XMS_ITS | Continuity of Care Document ---
:1960 Author Organization [facility] Adult Address [address] [place] [address]- Care Team Providers Name Role Phone Arya Merino MD Primary Care Physician Encounter [facility] Date(s): 04/02/22 - 04/09/22 [facility] [address] [place] [address]- Encounter Diagnosis Anxiety (Discharge Diagnosis) - 04/02/22 Benign hypertension (Discharge Diagnosis) - 04/02/22 Hypercholesterolemia (Discharge Diagnosis) - 04/02/22 Attending Physician: Arya Merino MD Allergies, Adverse [...] Vaccine (oldterm) 05/18/03 Given 1Result Comment: [02/18/2017] [id number] Note: [facility]3 Admin Note: [facility] Medications acetaminophen 500 mg oral capsule 2 [...] 3 Refills, Maintenance, 03/04/22 16:54:00 EDT, Table[place], [facility]/pharmacy #[id number], Partial fill upon patient request if the prescription is for a schedule II opioid drug., 181, cm, 03/04/22 16:36:00 EDT, Height Start Date: 03/04/22 Status: Orderedazelastine nasal 0.15% spray 2 sprays, Nares, Both, 2 times a day, PRN for allergy symptoms, # 30 mL, 11 Refills, Maintenance, 03/04/22 16:51:00 EDT, [place], [facility]/pharmacy #[id number], Partial fill upon patient request if the prescriptionis for a schedule II opioid drug., 2 sprays Nares... Start Date: 03/04/22 Status: OrderedcloNIDine 0.2 mg oral tablet 0.2 mg, 1, tablet, By Mouth, 2 times a day, # 180 tablet, Refills 3, Tot. Refills 3, Maintenance, 04/02/22 16:43:00 EST, Route to Pharmacy Electronically, [facility]/pharmacy #[id number], Partial fill upon patient request if the prescription is for a schedule II o... Start Date: 04/02/22 Status: OrderedFlonase 50 mcg/inh nasal spray 2 sprays, Nares, Both, Daily in AM, # 16 Gm, 11 Refills, Maintenance, 03/04/22 16:52:00 EDT, [place], [id number], Partial fill upon patient request if the prescription is for a schedule II opioiddrug., 2 sprays Nares, Both Daily in AM, 181, cm,... 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 History of meniscal tear2 Confirmed Active History of total knee Confirmed Active arthroplasty3 Hx of repair of left Confirmed Active rotator cuff Hypercholesterolemia Confirmed Active Ingrown toenail Confirmed Active Knee pain, right Confirmed Active Nephrolithiasis Confirmed Active Obese class II Confirmed Active Obesity Confirmed Active Osteoarthritis of right Confirmed Active knee Osteoarthritis of left Confirmed Active knee Biceps tendon rupture Confirmed Active Pain in right shoulder Confirmed Active 1colo 2011 nl repeat [id number] post 2 surgeries on right knee, most recent 2012.3Right - Instrarnie Diagnosis Diagnosis Type Effective Dates Health Clinical Infor mant Status Service Anxiety Discharge 04/02/22 Diagnosis Benign hypertension Discharge 04/02/22 Diagnosis Hypercholesterolemia Discharge 04/02/22 Diagnosis Vital Signs Most recent to oldest [Reference Range]: 1 2 Height 181 cm 181 cm (04/02/22 4:31 PM) (04/02/22 4:15 PM) Weight 122.2 kg (04/02/22 4:15 PM) Oxygen Saturation [94-100 %] 98 % (04/02/22 4:15 PM) Pulse Rate [55-90 bpm] 76 bpm (04/02/22 4:15 PM) Body Mass Index [18.5-24.99 kg/m2] 37.3 kg/m2 *>HHI* (04/02/22 4:15 PM) Blood Pressure [90-138/55-84 mm Hg] 147/70 mm Hg 143/ 72 mm Hg *H* *H* (04/02/22 4:31 PM) (04/02/22 4:15 PM) Mode of Delivery (Oxygen) Room air (04/02/22 4:15 PM) Blood pressure sites Arm, left Arm, left (04/02/22 4:31 PM) (04/02/22 4:15 PM) Weight Obtained Via Standing scale (04/02/22 4:15 PM) Social History Social History Type Response Smoking Status Never smoker entered on: 03/17/16 Sex Note Apryl Bradley: PERFORM, SIGN, VERIFY Event Display: Patient Education/Instruction Authored Date: [id number] [facility] *BMP Richa Page Clinical Summary Name EBEN CABA Age 61 Years 1960 PCP Arya Merino MD PCP Visit Date 04/02/2022 16:12:00 Additional Instructions: Scheduled Appointments?? Future Appointments ?No Future Appointments Scheduled Follow-Up Instructions ?? With: Address: When: Angelique TURNER, Arya Case In 1 month Diagnosis Essential (primary) hypertension; Polyosteoarthritis, unspecified; Pure hypercholesterolemia, unspecified; Anxiety disorder, unspecified Medications: Please continue your medications until treatment is completed or stopped by your provider. Discuss any questions related to medications with your provider. Medications to Continue Taking That Have Changed [facility]/pharmacy #[id number], [address] [place] [id number], [phone] - Clonidine (cloNIDine 0.2 mg oral tablet) 1 tab(s) Oral twice a day. Refills: 3. Next Dose: [facility] [address] [id number], [phone] - Meloxicam (meloxicam 15 mg oral tablet) 1 tab(s) Oral Daily for 90 Days. Refills: 3. Next Dose: Medications to Continue with No [...] for allergy symptoms. Refills: 11. Next Dose: Fluticasone Nasal (Flonase 50 mcg/inh nasal spray) 2 spray(s) Nares, Both Daily in the morning. Refills: 11. Next Dose: Allergy Info:?? Pollen Medications Given This Visit Future Orders ?Potassium Plasma? Order Date:04/02/22?- Complete on or after?04/02/22 Vital Signs Height 181 cm Weight 122.2 kg BMI 37.3 kg/m2 Blood Pressure 147 mm Hg/70 mm Hg Temperature Pulse Rate 76 bpm Respiratory Rate 02 Sat Mode of Delivery 98 %/Room air You can now view a summary of your hospital visit from the comfort of your home through a free online portal called Do It In Person. Do It In Person is a website that allows you to securely view yourmedical information including discharge summary, medications and follow-up visits. ??You can also send a secure electronic message to your doctor???s office to request appointments, renew medications or just ask a question. You can enroll at [email or web address] or register during your next office visit. [...] primary care provider, you may find a [facility] provider by calling [facility] [employer] [facility] at [phone]. For information about the plan of care including goals and instructions for your diagnosis, please see the patient education orders section of this document. Patient Education Materials?? The content of this educational material or handout may have been modified, supplemented, or adaptedfrom its original content and format to support your individualized medical care. Patient Care team information Care Team PersonnelName: Angelique TURNER, Arya Case Position: [facility] Primary Care Physician Member Role: PCP Address: Address: [address] [place] [address]- Care Team Related PersonsName: AUTUMN LAZARO Address: [place], [place] Name: ALEXIS ARGUELLES Address: [address] Name: JESSICA CABA Address: [address]
--- OUTSIDE RECORDS SUMMARY | 2022-05-19 05:59 | XMS_ITS | Continuity of Care Document ---
:1960 Author Organization [facility] Adult Address [address] [place] [address]- Care Team Providers Name Role Phone Arya Merino MD Primary Care Physician [place] [facility] Date(s): 05/02/19 - 05/12/19 [facility] [address] [place] [address]- [facility] Attending Physician: Admtr, Birdie Allergies, Adverse Reactions, Alerts Substance Reaction Severity [...] Vaccine (oldterm) 05/18/03 Given 1Result Comment: [02/18/2017] [id number] Note: [employer] Admin Note: [employer] Medications aspirin 325 mg oral tablet 325 [...] dysfunction(Confirmed) 06/07/10 Active 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 Arshad Social History Social History Type Response Smoking Status Never smoker entered on: 03/17/16 Sex
--- OUTSIDE RECORDS SUMMARY | 2022-05-19 05:59 | XMS_ITS | Continuity of Care Document ---
:1960 Author Organization [facility] Adult Address [address] [place] [address]- Care Team Providers Name Role Phone Angelique TURNER, Arya Case Primary Care Physician Encounter [facility] Date(s): 04/17/22 - 05/17/22 [facility] [address] [place] [address]- Allergies, Adverse Reactions, Alerts Substance Reaction Severity [...] Recorded tetanus/diphtheria/pertussis, acel(Tdap) 07/15/12 Given FluLaval (oldterm)2 9/4/12 Given FluLaval (oldterm)3 02/28/10 Given Tetanus Toxoid Vaccine (oldterm) 05/18/03 Given 1Result Comment: [02/18/2017] [id number] Note: [facility] Admin Note: [employer] [facility] Medications acetaminophen 500 mg oral capsule 2 [...] 3 Refills, Maintenance, 03/04/22 16:54:00 EDT, Tablet, [facility]/pharmacy #[id number], Partial fill upon patient request if the prescription is for a schedule II opioid drug., 181, cm, 03/04/22 16:36:00 EDT, Height Start Date: 03/04/22 Status: Orderedazelastine nasal 0.15% spray 2 sprays, Nares, Both, 2 times a day, PRN for allergy symptoms, # 30 mL, 11 Refills, Maintenance, 03/04/22 16:51:00 EDT, [place], [facility]/pharmacy #[id number], Partial fill upon patient request if the prescriptionis for a schedule II opioid drug., 2 sprays Nares... Start Date: 03/04/22 Status: OrderedbusPIRone 7.5 mg oral tablet 1 tablet = 7.5 mg, By Mouth, 2 times a day, # 60 tablet, 2 Refills, Maintenance, 04/30/22 15:28:00 EST, Table[place], [facility]/pharmacy #[id number], Partial fill upon patient request if the prescription is for a schedule II opioid drug., 181, cm, 04/30/22 15:05:00 EST... Start Date: 04/30/22 Stop Date: 07/29/22 Status: OrderedcloNIDine 0.2 mg oral tablet 0.2 mg, 1, tablet, By Mouth, 2 times a day, # 180 tablet, Refills 3, Tot. Refills 3, Maintenance, 04/02/22 16:43:00 EST, Route to Pharmacy Electronically, [facility]/pharmacy #[id number], Partial fill upon patient request if the prescription is for a schedule II o... Start Date: 04/02/22 Status: OrderedFlonase 50 mcg/inh nasal spray 2 sprays, Nares, Both, Daily in AM, # 16 Gm, 11 Refills, Maintenance, 03/04/22 16:52:00 EDT, [place], [facility]/pharmacy #[id number], Partial fill upon patient request if the prescription is for a schedule II opioiddrug., 2 sprays Nares, Both Daily in AM, 181, cm,... Start Date: 03/04/22 Status: OrderedhydrOXYzine hydrochloride 25 mg oral tablet 1 tablet = 25 mg, By Mouth, 4 times a day, PRN for anxiety, # 40 tablet, 1 Refills, Maintenance, 04/30/22 15:28:00 EST, [place], [facility]/pharmacy #[id number], Partial fill upon patient request if the prescriptionis for a schedule II opioid drug., 181, cm, 04/30... 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 Arshad Social History Social History Type Response Smoking Status Never smoker entered on: 03/17/16 Sex Patient Care team information Care Team PersonnelName: Angelique TURNER, Arya Case Position: [facility] Primary Care Physician Member Role: PCP Address: Address: [address] [place] [address]- Care Team Related PersonsName: AUTUMN LAZARO Address: [place] [address] Name: ALEXIS ARGUELLES Address: [address] [address] Name: JESSICA CABA Address: [address] [address]
--- OUTSIDE RECORDS SUMMARY | 2022-05-19 05:59 | XMS_ITS | Continuity of Care Document ---
:1960 Author Organization [facility] Adult Address [address] [place] [address]- Care Team Providers Name Role Phone Arya Merino MD Primary Care Physician Encounter [facility] Date(s): 03/06/20 - 03/13/20 [facility] [address] [place] [address]- [facility] Encounter Diagnosis Glucose intolerance (Discharge Diagnosis) - 03/06/20 Hypercholesterolemia (Discharge Diagnosis) - 03/06/20 Obesity (Discharge Diagnosis) - 03/06/20 Cervical spondylosis (Discharge Diagnosis) - 03/06/20 Chronic low back pain (Discharge Diagnosis) - 03/06/20 Attending Physician: Arya Merino MD Allergies, Adverse [...] Vaccine (oldterm) 05/18/03 Given 1Result Comment: [02/18/2017] [id number] Note: [employer] Admin Note: [employer] Medications CeleBREX 200 mg oral capsule 1 [...] dysfunction(Confirmed) 06/07/10 Active 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 Arshad Diagnosis Diagnosis Type Effective Health Clinical Informant Dates Status Service Glucose intolerance Discharge 03/06/20 Diagnosis Hypercholesterolemia Discharge 03/06/20 Diagnosis Obesity Discharge 03/06/20 Diagnosis Cervical spondylosis Discharge 03/06/20 Diagnosis Chronic low back pain Discharge 03/06/20 Diagnosis Vital Signs Most recent to oldest [Reference Range]: 1 Height 181 cm (03/06/20 3:09 PM) Weight 118.3 kg (03/06/20 3:09 PM) Oxygen Saturation [94-100 %] 98 % (03/06/20 3:09 PM) Pulse Rate [55-90 bpm] 79 bpm (03/06/20 3:09 PM) Body Mass Index [18.5-24.99] 36.11 *>HHI* (03/06/20 3:09 PM) Blood Pressure [90-138/55-84 mm Hg] 132/88 mm Hg (03/06/20 3:09 PM) Mode of Delivery (Oxygen) Room air (03/06/20 3:09 PM) Blood pressure sites Arm, left (03/06/20 3:09 PM) Weight Obtained Via Standing scale (03/06/20 3:09 PM) Social History Social History Type Response Smoking Status Never smoker entered on: 03/17/16 Sex
--- OUTSIDE RECORDS SUMMARY | 2022-05-19 05:59 | XMS_ITS | Continuity of Care Document ---
:1960 Author Organization [facility] Address [address] [place] [address]- Care Team Providers Name Role Phone Arya Merino MD Primary Care Physician Encounter [facility] Date(s): 03/04/22 - 03/11/22 [facility] [address] [place] [address]- Encounter Diagnosis Allergic rhinitis (Discharge Diagnosis) - 03/04/22 Hypercholesterolemia (Discharge Diagnosis) - 03/04/22 Chronic low back pain (Discharge Diagnosis) - 03/04/22 Anxiety (Discharge Diagnosis) - 03/04/22 Attending Physician: Arya Merino MD Allergies, Adverse [...] Vaccine (oldterm) 05/18/03 Given 1Result Comment: [02/18/2017] [id number] Note: [employer] Admin Note: [facility] Medications acetaminophen 500 mg [...] 3 Refills, Maintenance, 03/04/22 16:54:00 EDT, Tablet, [facility]/pharmacy #[id number], Partial fill upon patient request if the prescription is for a schedule II opioid drug., 181, cm, 03/04/22 16:36:00 EDT, Height Start Date: 03/04/22 Status: Orderedazelastine nasal 0.15% spray 2 sprays, Nares, Both, 2 times a day, PRN for allergy symptoms, # 30 mL, 11 Refills, Maintenance, 03/04/22 16:51:00 EDT, [place], [id number], Partial fill upon patient request if the prescriptionis for a schedule II opioid drug., 2 sprays Nares... Start Date: 03/04/22 Status: OrderedcloNIDine 0.1 mg oral tablet 0.1 mg, 1, tablet, By Mouth, 2 times a day, # 180 tablet, Refills 3, Tot. Refills 3, Maintenance, 03/04/22 16:54:00 EDT, Route to Pharmacy Electronically, [id number], Partial fill upon patient request if the prescription is for a schedule II o... Start Date: 03/04/22 Status: OrderedFlonase 50 mcg/inh nasal spray 2 sprays, Nares, Both, Daily in AM, # 16 Gm, 11 Refills, Maintenance, 03/04/22 16:52:00 EDT, [place], [id number], Partial fill upon patient request if the prescription is for a schedule II opioiddrug., 2 sprays Nares, Both Daily in AM, 181, cm,... Start Date: 03/04/22 Status: Orderedmeloxicam 15 mg oral tablet 1 tablet = 15 mg, By Mouth, Daily, # 90 tablet, 0 Refills, Maintenance, 03/04/22 16:39:00 EDT, [place], Partial fill upon patient request if the prescription is for a schedule II opioid drug. 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 Arshad Diagnosis Diagnosis Type Effective Health Clinical Informant Dates Status Service Allergic rhinitis Discharge 03/04/22 Diagnosis Hypercholesterolemia Discharge 03/04/22 Diagnosis Chronic low back pain Discharge 03/04/22 Diagnosis Anxiety Discharge 03/04/22 Diagnosis Vital Signs Most recent to oldest [Reference Range]: 1 2 Height 181 cm 181 cm (03/04/22 4:36 PM) (03/04/22 4:26 PM) Weight 122.0 kg (03/04/22 4:26 PM) Oxygen Saturation [94-100 %] 97 % (03/04/22 4:26 PM) Pulse Rate [55-90 bpm] 77 bpm (03/04/22 4:26 PM) Body Mass Index [18.5-24.99 kg/m2] 37.24 kg/m2 *>HHI* (03/04/22 4:26 PM) Blood Pressure [90-138/55-84 mm Hg] 151/76 mm Hg 144/ 76 mm Hg *H* *H* (03/04/22 4:36 PM) (03/04/22 4:26 PM) Mode of Delivery (Oxygen) Room air (03/04/22 4:26 PM) Blood pressure sites Arm, left Arm, left (03/04/22 4:36 PM) (03/04/22 4:26 PM) Weight Obtained Via Standing scale (03/04/22 4:26 PM) Social History Social History Type Response Smoking Status Never smoker entered on: 03/17/16 Sex Patient Care team information PersonnelName: Angelique TURNER, Arya Case Address: Address: [address] [place] [id number]
--- OUTSIDE RECORDS SUMMARY | 2022-05-19 05:59 | XMS_ITS | Continuity of Care Document ---
:1960 Author Organization [facility] Adult Address [address] [place] [address]- Care Team Providers Name Role Phone Arya Merino MD Primary Care Physician Encounter [facility] Date(s): 09/17/20 - 09/24/20 [facility] [address] [place] [address]- Attending Physician: Arya Merino MD Allergies, Adverse Reactions, Alerts Substance Reaction Severity Status Pollen Active Immunizations Given and Recorded Vaccine Date Status Refusal Reason SARS-CoV-2 (COVID-19) mRNA-1273 vaccine 09/13/20 Recorded SARS-CoV-2 (COVID-19) mRNA-1273 vaccine 08/14/20 Recorded influenza virus vaccine, inactivated 03/06/20 Given influenza [...] Vaccine (oldterm) 05/18/03 Given 1Result Comment: [02/18/2017] [id number] Note: [facility]3 Admin Note: [facility] Medications acetaminophen 500 mg oral capsule 2 [...] Start Date: 03/06/20 Stop Date: 03/01/21 Status: Ordered Problem List Condition Effective Dates Status Health Status Informant Allergic rhinitis(Confirmed) Active Anxiety(Confirmed) Active Cervical spondylosis(Confirmed) Active Chronic low back pain(Confirmed) Active Colonoscopy(Confirmed)1 Active Glucose intolerance(Confirmed) Active Erectile dysfunction(Confirmed) 06/07/10 Active 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 Instrum Vital Signs Most recent to oldest [Reference Range]: 1 2 Height 181 cm 181 cm (09/17/20 3:24 PM) (09/17/20 3:07 PM) Weight 120.6 kg (09/17/20 3:07 PM) Oxygen Saturation [94-100 %] 97 % (09/17/20 3:07 PM) Pulse Rate [55-90 bpm] 88 bpm (09/17/20 3:07 PM) Body Mass Index [18.5-24.99] 36.81 *>HHI* (09/17/20 3:07 PM) Blood Pressure [90-138/55-84 mm Hg] 136/75 mm Hg 140/ 65 mm Hg (09/17/20 3:24 PM) *H* (09/17/20 3:07 PM) Mode of Delivery (Oxygen) Room air (09/17/20 3:07 PM) Blood pressure sites Arm, left Arm, left (09/17/20 3:24 PM) (09/17/20 3:07 PM) Weight Obtained Via Standing scale (09/17/20 3:07 PM) Social History Social History Type Response Smoking Status Never smoker entered on: 03/17/16 Sex
--- OUTSIDE RECORDS SUMMARY | 2022-05-19 05:59 | XMS_ITS | Continuity of Care Document ---
:1960 Author Organization [facility] Adult Address [address] [place] [address]- Care Team Providers Name Role Phone Arya Merino MD Primary Care Physician [place] [facility] [place] - 05/12/19 [facility] [address] [place] [address]- [facility] Attending Physician: Arya Merino MD Allergies, Adverse [...] Vaccine (oldterm) 05/18/03 Given 1Result Comment: [02/18/2017] [id number] Note: [employer] Admin Note: [employer] Medications aspirin 325 mg oral tablet 325 [...] tendon rupture(Confirmed) Active 1colo 2011 nl repeat 20787Beazzh post 2 surgeries on right knee, most recent 2012.3Right - Instrarnie Social History Social History Type Response Smoking Status Never smoker entered on: 03/17/16 Sex
--- OUTSIDE RECORDS SUMMARY | 2022-05-19 05:59 | XMS_ITS | Continuity of Care Document ---
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 Arshad Social History Social History Type Response Smoking Status Never smoker entered on: 03/17/16 Sex
--- OUTSIDE RECORDS SUMMARY | 2022-05-19 05:59 | XMS_ITS | Continuity of Care Document ---
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 Arshad Social History Social History Type Response Smoking Status Never smoker entered on: 03/17/16 Sex
--- OUTSIDE RECORDS SUMMARY | 2022-05-19 05:59 | XMS_ITS | Continuity of Care Document ---
:1960 Author Organization [facility] Adult Address [address] [place] [address]- Care Team Providers Name Role Phone Arya Merino MD Primary Care Physician Encounter [facility] Date(s): 03/26/21 - 04/02/21 [facility] Adult [address] [place] [address]- Attending Physician: Arya Merino MD Allergies, Adverse [...] Vaccine (oldterm) 05/18/03 Given 1Result Comment: [02/18/2017] [id number] Note: [email or web address] Admin Note: myEDmatch Medications acetaminophen 500 mg oral capsule 2 [...] dysfunction(Confirmed) 06/07/10 Active 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(Confirmed) Active halfway current use of opiate Active analgesic(Confirmed) History of meniscal tear(Confirmed)2 Active History of total knee Active arthroplasty(Confirmed)3 Hx of repair of left rotator Active cuff(Confirmed) Hypercholesterolemia(Confirmed) Active Ingrown toenail(Confirmed) Active Knee pain, right(Confirmed) Active Nephrolithiasis(Confirmed) Active Obesity(Confirmed) Active Osteoarthritis of right Active knee(Confirmed) Osteoarthritis of left knee(Confirmed) Active Biceps tendon rupture(Confirmed) Active Pain in right shoulder(Confirmed) Active 1colo 2011 nl repeat [id number] post 2 surgeries on right knee, most recent 2012.3Right - DrSandra Instrum Vital Signs Most recent to oldest [Reference Range]: 1 Height 181 cm (03/26/21 3:08 PM) Weight 120.6 kg (03/26/21 3:08 PM) Oxygen Saturation [94-100 %] 98 % (03/26/21 3:08 PM) Pulse Rate [55-90 bpm] 80 bpm (03/26/21 3:08 PM) Body Mass Index [18.5-24.99] 36.81 *>HHI* (03/26/21 3:08 PM) Blood Pressure [90-138/55-84 mm Hg] 136/76 mm Hg (03/26/21 3:08 PM) Mode of Delivery (Oxygen) Room air (03/26/21 3:08 PM) Blood pressure sites Arm, left (03/26/21 3:08 PM) Weight Obtained Via Standing scale (03/26/21 3:08 PM) Social History Social History Type Response Smoking Status Never smoker entered on: 03/17/16 Sex
--- NOTE | 2022-05-19 06:12 | ED_ITS ---
HPI - Abdominal Pain General Chief Complaint: Abdominal Pain Stated Complaint: possible kidney stones Time Seen by Provider: 05/19/22 05:26 Source: patient and family (Sister, Rasheeda) Mode of arrival: ambulatory Limitations: no limitations History of Present Illness HPI narrative: 61-year-old male who presents emergency department for evaluation sudden onset of left flank and left lower abdominal pain which occurred around midnight. Patient states that the pain is a severe, sharp, stabbing pain which is constant and is 10/10. Pain does radiate to his lower abdomen. Patient had associated nausea and vomiting. Patient states that he has a history of at least 5 episodes of kidney stone passed and that today's pain feels similar to his kidney stone pain. He denied frequency, urgency or dysuria. He denied fever, chills, chest pain, shortness of breath. Related Data Home Medications Medication Instructions Recorded Confirmed celecoxib 50 mg capsule (Celebrex) 50 mg PO DAILY 04/17/20 Previous Rx's Medication Instructions Recorded morphine 15 mg immediate release 15 mg PO Q4-6H PRN pain #14 tabs 05/19/22 tablet tamsulosin 0.4 mg capsule (Flomax) 0.4 mg PO DAILY #30 caps 05/19/22 Allergies Allergy/AdvReac Type Severity Reaction Status Date / Time ENVIRONMENTAL Allergy Unknown SNEEZING Uncoded 05/21/21 13:42 Review of Systems Review of Systems Yes all other systems are reviewed and are negative [facility] Past Medical History [facility] Narrative: Past medical history: Hypertension, hyperlipidemia, anxiety, kidney stones, arthritis, lower back pain. Past surgical history: Bilateral knee replacement, left shoulder surgery, left biceps surgery. Social history: Patient denies tobacco use. He drinks 2 beers 2 to 3 times a week. Denies drug use. Surgical History History of total left knee replacement History of total right knee replacement Social History Social History Alcohol intake: current Alcohol intake frequency: a few times a week Alcohol type: beer Smoked in Last 30 Days: No Use of substances other than those prescribed or required for medical reasons: No Advance Directives: No Advance Directives Information Provided: No Physical Exam ED Vital Signs: Vital Signs - 24 hr 05/19/22 04:52 05/19/22 06:27 Temperature 97.6 F 98.1 F Pulse Rate 64 73 Respiratory Rate 28 H 16 Blood Pressure 163/73 H 120/56 L Pulse Oximetry 98 96 Oxygen Delivery Method Room Air Room Air BMI result Body Mass Index 31.4 Const General: cooperative and no acute distress Orientation/consciousness: oriented to person and oriented to place Limitations: no limitations HENMT Head: Yes normal to inspection, Yes normocephalic and Yes atraumatic Ears: external ears normal General nose exam: Normal external nose present Face and sinus: Yes normal facial exam Mouth: Normal oral and palatal mucosa present Throat: Yes posterior oropharynx normal Eyes General: appearance normal, both eyes and all related structures Pupils: Equal, round and reactive pupils present Neck Neck: Yes normal visual inspection, Yes no lymphadenopathy, Yes trachea midline and Yes supple Chest Chest palpation & inspection: normal inspection of the chest and normal palpation of entire chest wall Resp Effort & Inspection: normal respiratory effort and able to speak in complete sentences Auscultation: clear to auscultation bilaterally Cardio Rate: regular rate Rhythm: regular rhythm Heart sounds: S1 normal heart sound present, S2 normal heart sound present and no murmurs GI Inspection: Yes normal to inspection Palpation (GI): Soft to palpation, Tenderness to palpation present (GI) in the LLQ (Moderate) and no guarding Auscultation: normal bowel sounds General: Yes CVA tenderness on the left (Moderate) Back/Spine/Pelvis Back: CVA tenderness Skin General skin exam: no rashes or lesions noted Neuro General: oriented to person and oriented to place Cranial nerves: Yes CN's II-XII intact bilaterally and Yes Equal, round and reactive pupils present Cognition (Neuro): normal cognition Motor exam (neuro): 5/5 motor strength present throughout Extrem General: Yes normal to inspection Psych Appearance: grossly normal Speech and movement: Normal speech and movement present Affect: normal affect Attitude: cooperative Thought process: Normal thought process present Thought content: Normal thought content present Medical Decision Making Medical Decision Making MDM Narrative: 61-year-old male who presents emergency department for evaluation of sudden onset of left-sided flank pain that began at midnight. Patient has multiple episodes of kidney stones in the past and he stated that this pain felt similar to his kidney stone pain. Vital signs revealed hypertension with a blood pre ssure of 163/73 and tachypnea with a respiratory rate of 28. He has improved after the pain patient's pain was treated. Patient did have left lower quadrant tenderness and left flank CVA tenderness. Laboratory evaluation [place] [address], elevated BUN 23, elevated glucose of 168. Urinalysis was positive for blood. Microscopic revealed greater than 20 WBCs, no RBCs and no bacteria. CT scan of the abdomen pelvis without IV contrast revealed a 2 mm left ureteral stone 1 cm away from the UVJ. There were several other incidental findings including fatty liver and bilateral punctate stones. There was also question of esophagitis. I did discuss these findings with the patient. Patient was medicated with Toradol 15 mg IV and Zofran 4 mg IV. Also received normal saline x1 L. patient's pain did improve from 12/25 to 08/25. He was given a dose of morphine 4 mg IV with further improvement of his pain. Patient was discharged home with instructions to take Tylenol for pain and for pain not relieved by Tylenol he was prescribed morphine 15 mg every 4 hours. He was also started on Flomax 0.4 mg daily. Was given his 1st dose here in the emergency department. Differential Diagnosis Differential Diagnoses: The differential diagnosis associated with the presentation includes Differential includes but is not limited to ureteral stone, ureteral colic, renal colic, pyelonephritis, back strain Admission/Observation Consideration of admission/observation: Escalation of care including admission/observation considered (Considered admission for intractable pain) Lab Data [facility] Lab Attestation statement: I reviewed the patient's lab results. Please see the MDM Section from a discussion patient's laboratory findings Result Diagrams: 05/19/22 05:18 05/19/22 05:18 Labs: Lab Results 05/19/22 05/19/22 05/19/22 Range/Units 04:56 05:18 05:18 WBC 13.9 H (4.8-10.8) X10*3/uL RBC 5.41 (4.60-5.80) X10*6/uL Hgb 15.3 (14.0-18.0) g/dl Hct 46.7 (42.0-52.0) % MCV 86.3 (80.0-98.0) fL MCH 28.3 (27.0-33.0) pg MCHC 32.8 (31.0-36.0) g/dl RDW 14.3 (11.0-16.0) % Plt Count 269 (160-400) X10*3/uL MPV 8.7 L (9.4-12.4) fL Absolute Nucleated RBC 0.000 (0.0-0.012) X10*3/uL Nucleated RBC % (auto) 0.0 (0.0-0.2) /100WBC Sodium 139 (135-145) mmol/L Potassium 4.2 (3.3-5.1) mmol/L Chloride 106 (96-108) mmol/L Carbon Dioxide 20 L (22-29) mmol/L Anion Gap 17 (12-20) BUN 23 H (9-16) mg/dL Creatinine 1.40 (0.5-1.4) mg/dL Estim Creat Clear Calc 67.4 Estimated GFR 52 Random Glucose 168 H (60-115) mg/dL Calcium 9.6 (8.4-10.2) mg/dL Total Bilirubin 0.6 (0.0-1.0) mg/dL Direct Bilirubin 0.2 (0.0-0.5) mg/dL AST 25 (5-37) U/L ALT 31 (0-40) U/L Alkaline Phosphatase 47 (39-117) U/L Total Protein 7.0 (6.5-8.0) g/dL Albumin 4.6 (3.5-5.0) g/dL Lipase 22 (8-78) U/L Urine Color Yellow Urine Appearance Cloudy Urine pH 5.0 (5.0-9.0) Ur Specific [place] 1.025 (1.005-1.025) Urine Protein Trace (Neg-Trace) mg/dL Urine Glucose (UA) Negative (Negative) mg/dL Urine Ketones Negative (Negative) mg/dL Urine Blood Large (3+) H (Negative) Urine Nitrite Negative (Negative) Ur Leukocyte Esterase Negative (Negative) Urine RBC >20 H (0-2) /HPF Urine WBC 0-5 (0-5) /HPF Ur Squamous Epith Cells 0-2 (0-2) /HPF Urine Bacteria None Seen (None Seen) Hyaline Casts 0-2 (0-2) /LPF Independent Interpretation I performed an independent interpretation of an: CT Scan (Abdomen pelvis without IV contrast) Interpretation: My independent interpretation of the CT scan of the abdomen pelvis without IV contrast is left ureteral stone Radiology Impression Discussion of test interpretation with radiology: I have reviewed the radiologist's reading. Radiologist Impression: IMPRESSION: * There is a 2 mm calculus within the distal LEFT ureter, 1 cm proximal to the ureterovesical junction associated mild upstream hydroureteronephrosis, periureteral and perinephric stranding. * Bilateral nonobstructive punctate intrarenal calculi. * Hepatic steatosis. * Query esophagitis. Dictated By:Yung Ca MDSigned By:<Electronically signed by Yung Ca MD in OV>05/19/22 0620 Independent Historian Clinical information obtained from an independent historian. History obtained from or confirmed by: Other (Sister) Prescription Management Patient was prescribed Flomax 0.4 mg daily times 2-4 weeks or until he passes the ureteral stone and morphine 15 mg every 4 hours as needed for pain not Tylenol. Medications Administered Discontinued Medications Generic Name Dose Route Start Last Admin Trade Name Freq PRN Reason Stop Dose Admin Sodium Chloride 1,000 mls @ 999 mls/hr 05/19/22 05:26 05/19/22 06:45 Ns IV 05/19/22 06:26 Infused .Q1H1M STA Infusion Ketorolac Tromethamine 15 mg 05/19/22 05:26 05/19/22 05:45 Ketorolac Tromethamine 15 Mg/Ml Vial IVPUSH 05/19/22 05:27 15 mg ONCE STA Administration Morphine Sulfate 4 mg 05/19/22 06:26 05/19/22 06:30 Morphine Sulfate 4 Mg/Ml Cartridge IVPUSH 05/19/22 06:27 4 mg ONCE STA Administration Protocol Ondansetron HCl 4 mg 05/19/22 05:26 05/19/22 05:45 Ondansetron Hcl 4 Mg/2 Ml Vial IVPUSH 05/19/22 05:27 4 mg ONCE ONE Administration Discharge Plan Discharge Clinical Impression: Renal colic on left side, Left ureteral calculus Patient Disposition: Home, Self-Care Instructions: How to Strain Your Urine (ED), Ureteral Stones (ED) Additional Instructions: Your laboratory evaluation was unremarkable. Your urine was positive for blood only but no signs of a urine infection The CT scan of your abdomen pelvis without IV contrast did reveal a 2 mm left ureteral stone approximately 1 cm away from the bladder. This is the cause of your left-sided pain. Take Tylenol (acetaminophen) 2 pills every 4-6 hours as needed for pain. For pain not relieved by Tylenol take morphine 15 mg pills, 1 pill every 4 hours as needed for pain. This medication will make you sleepy, do not drive or work while taking this medication. Morphine is a narcotic medication and can be addicting. If you are concerned about addiction you can ask the pharmacist for less pills or do not get this prescription filled. Take Flomax (tamsulosin) 0.4 mg once a day for the next 2-4 weeks or until you pass the stone. This medication helps relax the ureter and may help you pass the stone sooner. Follow-up with our on-call urologist, Dr. Pastor in 7-10 days. Please return to the emergency department if your symptoms get worse or if you develop any symptoms that are concerning to you. The radiology reading of your CT scan is as follows: IMPRESSION: * There is a 2 mm calculus within the distal LEFT ureter, 1 cm proximal to the ureterovesical junction associated mild upstream hydroureteronephrosis, periureteral and perinephric stranding. * Bilateral nonobstructive punctate intrarenal calculi. * Hepatic steatosis. * Query esophagitis. Dictated By:Yung Ca MDSigned By:<Electronically signed by Yung Ca MD in OV>05/19/22 0620 Prescriptions: New tamsulosin [Flomax] 0.4 mg capsule 0.4 mg PO DAILY Qty: 30 0RF morphine 15 mg tablet 15 mg PO Q4-6H PRN (Reason: pain) Qty: 14 0RF Rx Instructions: Patient may request partial fill; Partial Fill upon patient request. No Action celecoxib [Celebrex] 50 mg capsule 50 mg PO DAILY Referrals: Sandeep Pastor MD [Physician] - 1 week (Left 2 mm ureteral stone 1 cm away from bladder)
[2022-05-19 06:27] VITALS: BP 120/56; PULSE 73; RESP 16; TEMP 36.7; O2SAT 96
[2022-05-19] MEDS: Morphine Sulfate 4 MG/ML CARTRIDGE IVPUSH ×2 (06:30→07:57)
--- NOTE | 2022-05-19 06:34 | PC.NURSE ---
Upon arrival pt. reporting pain at 8/10 and was visibly uncomfortable. IV placed and 1L fluids hung. Pt. reports home medications of meloxicam 15mg, buspirone 7.5mg X2, atorvastatin 40mg, and clonidine 0.2mg X2. Pt. reports decrease in pain to 4/10 after ketorolac. Medicated with morphine per JUL. Pt. currently resting in bed with sister at bedside. Pt. appears more comfortable than upon arrival.
[2022-05-19] MEDS: Tamsulosin HCL 0.4 MG CAPSULE PO (07:57)
--- NOTE | 2022-05-19 08:00 | PC.NURSE ---
patient a/ox4 . júniorrla . heart rate regular at 73 beat per minute . breathing even and unlabored . lungs clear throughout . skin pink warm and dry . abdomen soft , positive bowel sounds throughout . patient reports 5 out of 10 left flank pain . medicated with morphine as ordered IVP . patient aware of plan of care .
--- NOTE | 2022-05-19 08:12 | PC.NURSE ---
patient a/ox4. VSS . patient medicated prior to discharge , sister at bedside for transportation home . Went over discharge instructions as ordered by provider . Information provided for follow up with nephrology . patient to return to Ed if symptoms worsen . no questions at this time .
== END 2022-05-19 08:14 | disposition home or self-care (01) ==
PROVIDERS: Emergency Provider Emergency Medicine Emergency Medical Services; PCP Internal Medicine
DX: N13.2 Hydronephrosis with renal and ureteral calculous obstruction (principal); Z87.442 Personal history of urinary calculi
CPT/HCPCS: 36415; 74176; 80053; 81001; 82248; 83690; 85027; 96361; 96374; 96375; 96376; 99284; 99285; J1885; J2270; J2405

== ENCOUNTER → 2022-08-21 13:11 | Outpatient (BNVA) | payer OTHER, SELFPAY | PROVIDERS: PCP Internal Medicine; Visit Provider Physician Assistant Medical | DX: S46.912D Strain of unspecified muscle, fascia and tendon at shoulder and upper arm level, left arm, subsequent encounter (principal); X50.1XXD Overexertion from prolonged static or awkward postures, subsequent encounter | CPT/HCPCS: 73030; 99204 ==

== ENCOUNTER → 2022-08-27 13:53 | Outpatient (BNVA) | payer OTHER, SELFPAY | PROVIDERS: PCP Internal Medicine; Visit Provider Physician Assistant | DX: S46.912D Strain of unspecified muscle, fascia and tendon at shoulder and upper arm level, left arm, subsequent encounter (principal); X50.1XXD Overexertion from prolonged static or awkward postures, subsequent encounter | CPT/HCPCS: 99214 ==

== ENCOUNTER → 2022-09-05 10:42 | Outpatient (BNVA) | payer OTHER, SELFPAY | PROVIDERS: PCP Internal Medicine; Visit Provider Physician Assistant | DX: S46.912D Strain of unspecified muscle, fascia and tendon at shoulder and upper arm level, left arm, subsequent encounter (principal); X50.1XXD Overexertion from prolonged static or awkward postures, subsequent encounter | CPT/HCPCS: 99213 ==

== ENCOUNTER 2022-09-18 19:08 | Outpatient (REF) | payer OTHER, SELFPAY ==
--- NOTE | ~2022-09-18 | MR_ITS ---
EXAMINATION: MR SHOULDER WITHOUT CONTRAST, RIGHT CLINICAL INFORMATION: Right shoulder pain COMPARISON: Radiographs 08/21/2022 TECHNIQUE: MRI of the shoulder without contrast was performed on a high-field scanner. FINDINGS: ROTATOR CUFF: Near full-thickness undersurface partial tearing throughout the distal supraspinatus tendon with a probable full-thickness perforation at the tendon insertion. Is also infraspinatus tendinopathy with ill-defined undersurface partial tearing anteriorly. Small linear longitudinal interstitial partial tear proximal to the tendon insertion. There is ill-defined high-grade undersurface partial tearing of the distal subscapularis tendon. Mild fatty atrophy of the subscapularis muscle. BICEPS: Severe biceps tendinopathy and ill-defined longitudinal partial tearing. The tendon is partially subluxed out of the bicipital groove, draped over the lesser tuberosity deep to the subscapularis tendon. CORACOACROMIAL ARCH: The undersurface of the acromion is flat with no subacromial spur. Moderate acromioclavicular osteoarthritis. LABRUM/CAPSULE: Degeneration and small undersurface tear of the posterior superior labrum. GLENOHUMERAL JOINT/MARROW: Small irregular enthesophytes of the lesser tuberosity and greater tuberosity at the supraspinatus tendon insertion. Small marginal osteophytes. Trace joint effusion and prominent fluid throughout the subacromial subdeltoid bursa. MR/MR shoulder RT wo con IMPRESSION: 1. Near full-thickness undersurface partial tearing of the supraspinatus tendon with a probable full-thickness perforation at the tendon insertion. 2. Infraspinatus tendinopathy with mild ill-defined undersurface partial tearing anteriorly. 3. Ill-defined high-grade undersurface partial tearing of the distal subscapularis tendon with mild fatty atrophy of the muscle. 4. Severe biceps tendinopathy with ill-defined longitudinal partial tearing. The tendon is partially subluxed out of the bicipital groove, draped over the lesser tuberosity deep to the subscapularis tendon. 5. Moderate acromioclavicular and mild glenohumeral osteoarthritis.
== END 2022-09-18 19:09 | disposition home or self-care (01) ==
LOC: HO.MRI 19:08
PROVIDERS: PCP Internal Medicine; Visit Provider Internal Medicine
DX: S49.91XD Unspecified injury of right shoulder and upper arm, subsequent encounter (principal); M25.511 Pain in right shoulder
CPT/HCPCS: 73221

== ENCOUNTER → 2022-09-24 09:54 | Outpatient (BNVA) | payer OTHER, SELFPAY | PROVIDERS: PCP Internal Medicine; Visit Provider Physician Assistant | DX: M75.101 Unspecified rotator cuff tear or rupture of right shoulder, not specified as traumatic (principal); S46.912D Strain of unspecified muscle, fascia and tendon at shoulder and upper arm level, left arm, subsequent encounter; X50.1XXD Overexertion from prolonged static or awkward postures, subsequent encounter | CPT/HCPCS: 99213 ==

== ENCOUNTER 2023-10-08 20:17 | Emergency (ER) | payer OTHER, SELFPAY ==
--- NOTE | ~2023-10-08 | XR_ITS ---
EXAMINATION: XR ELBOW, RIGHT CLINICAL INFORMATION: Injury. Deformity over the olecranon. COMPARISON: None available. TECHNIQUE: AP, lateral, and oblique views of the right elbow. 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 Prominent enthesopathic spurs are present at the medial and lateral humeral condyles. Small enthesopathic spur at the triceps tendon insertion on the olecranon.. There are multiple small ossific fragments posterior to the olecranon which could correspond to avulsed, retracted enthesopathic spurs, residing 1.5 cm from the triceps tendon attachment. Other dystrophic soft tissue calcifications are possible. No additional fractures are suspected. No joint effusion. Soft tissues are swollen dorsal to the olecranon. XR/XR elbow RT min 3V IMPRESSION: 1. Multiple small ossific fragments posterior to the olecranon which could correspond to avulsed enthesopathic spurs, residing 1.5 cm from the triceps tendon attachment. Other dystrophic soft tissue calcifications are possible. Consider correlation with MRI of the elbow without contrast. 2. Soft tissue swelling at the olecranon. 3. Mild osteoarthritis.
[2023-10-08 20:41] VITALS: BP 153/86; PULSE 82; RESP 18; TEMP 37.4; BMI 36.0
--- NOTE | 2023-10-08 20:41 | ED.GENADULT ---
HPI - General Adult General Chief complaint: Extremity Injury, Upper Stated complaint: elbow inj, heard a pop Time Seen by Provider: 10/08/23 21:59 Source: patient Mode of arrival: ambulatory Limitations: no limitations History of Present Illness ED Provider: Nory Choudhary PA-C HPI narrative: 62 yo male presents to the ED for evaluation of his right elbow s/p injury. The patient states he was working on his car this evening, pushing down with both hands using significant force when he heard and felt a pop or a snap in his right elbow. He states he has torn ligaments in the past and this was a similar sensation. He endorses mild pain over the olecranon region. He states he took Vicodin for the pain before arrival to the ED. He noted a grooved deformity over the olecranon, prompting him to come to the ED. He denies loss of sensation. Endorses paresthesias in fingers when blood pressure was taken in the affected arm. Denies additional injuries. MD complaint: Right elbow injury Onset (ago): hour(s) Location: right and upper extremity Radiation: non-radiation Severity: severe Severity scale (1-10): 10 Quality: aching Pain Consistency: other (improved) Relieving factors: immobilization Exacerbating factors: movement Associated symptoms: denies other symptoms Treatments prior to arrival: other Related Data Home Medications ?Medication ?Instructions ?Recorded ?Confirmed celecoxib 50 mg capsule (Celebrex) 50 mg PO DAILY 04/17/20 Previous Rx's ?Medication ?Instructions ?Recorded ondansetron 4 mg disintegrating 4 mg PO Q6H PRN nausea and 05/19/22 tablet vomiting #10 tabs tamsulosin 0.4 mg capsule (Flomax) 0.4 mg PO DAILY #30 caps 05/19/22 methylprednisolone 4 mg tablets in See Rx Instructions PO PER PKG DIR 08/21/22 a dose pack (Medrol (Homer)) #21 ea oxycodone 5 mg tablet 5 mg PO Q8H PRN pain #10 tabs 08/21/22 ibuprofen 600 mg tablet 600 mg PO Q8H PRN pain #20 tabs 10/08/23 oxycodone 5 mg tablet 5 mg PO Q8H PRN severe pain (scale 10/08/23 score 7-10) #8 tabs Allergies Allergy/AdvReac Type Severity Reaction Status Date / Time ENVIRONMENTAL Allergy Unknown SNEEZING Uncoded 10/08/23 20:44 Review of Systems Review of Systems: Yes all other systems are reviewed and are negative [facility] Past Medical History Surgical History History of total left knee replacement History of total right knee replacement Social History Social History Alcohol intake: current Alcohol intake frequency: a few times a week Alcohol type: beer Advance Directives: No Advance Directives Information Provided: No Do you have a plan to hurt others: No Plan Physical Exam ED Vital Signs: Vital Signs - 24 hr 10/08/23 22:01 10/08/23 23:43 10/09/23 00:55 Temperature 98.5 F 97.5 F 97.9 F Pulse Rate 76 65 69 Respiratory Rate 16 16 16 Blood Pressure 143/80 H 167/96 H 157/90 H Pulse Oximetry 97 97 97 Oxygen Delivery Method Room Air Room Air Room Air BMI result Body Mass Index 36.0 Appearance: Alert. Oriented X3. No acute distress. Head: normocephalic, atraumatic. Eyes: Pupils equal, round and reactive to light. ENT: Pharynx normal. Neck: Normal inspection. CVS: Normal heart rate and rhythm. Pulses normal. Respiratory: No respiratory distress. Abdomen: Soft and nontender. Skin: Skin warm and dry. Normal skin color. Normal skin turgor. No rashes. Extremities: Soft tissue swelling of right olecranon with palpable defect. No erythema or ecchymosis. Able to fully flex and extend right elbow w/ pain. Neurovascularly intact distally. normal palpation of the right shoulder and wrist. Neuro/psych: Oriented X 3. No motor deficit. No sensory deficit. Normal speech and cognition. Course Course Course Narrative: This is a Rapid Medical Examination (RME) performed by Krupa Barraza PA-C in triage. Full HPI, ROS, assessment and treatment plan per primary provider in the Main ED. 62 yo 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 male here for eval of right elbow pain which occurred while pushing down on a car part earlier today. reports hearing heard pop in right elbow with 10/10 pain and associated nausea. reports taking a shot of bourbon and a few tylenol with minimal relief. endorses divot where my elbow is typically pointy . FROM noted to right elbow w/ noticeable dent over olecranon. no palpable fracture. negative varus/valgus. 2+ radial and ulnar pulse. Plan: xrs Procedures Orthopedic Splinting/Casting Injury #1: Side: right Upper Extremity Injury Location: elbow Upper Extremity Immobilizer: sling/shoulder immobilizer and posterior splint Medical Decision Making Medical Decision Making MDM Narrative: 62 yo male presents to the ED for evaluation of his right elbow s/p injury. The patient states he was working on his car this evening, pushing down with both hands using significant force when he heard and felt a pop or a snap in his right elbow. Neurovascularly intact. X-rays revealed multiple ossific fragments posterior to the olecranon, suggestive of an avulsion fracture. Placed in a posterior long arm splint and sling. Call [facility] [place] in the morning to schedule visit. patient expressed understanding in importance for proper follow up. Differential Diagnosis Differential Diagnoses: The differential diagnosis associated with the presentation includes Olecranon avulsion fracture, olecranon dislocation, olecranon bursitis, ulnar collateral ligament injury Independent Interpretation I performed an independent interpretation of an: Plain X-Ray Interpretation: Multiple ossific fragments of right posterior olecranon, suggestive of an avulsion fracture. Radiology Impression Discussion of test interpretation with radiology: I have reviewed the radiologist's reading. Radiologist Impression: EXAMINATION: XR ELBOW, RIGHT CLINICAL INFORMATION: Injury. Deformity over the olecranon. COMPARISON: None available. TECHNIQUE: AP, lateral, and oblique views of the right elbow. 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 Prominent enthesopathic spurs are present at the medial and lateral humeral condyles. Small enthesopathic spur at the triceps tendon insertion on the olecranon.. There are multiple small ossific fragments posterior to the olecranon which could correspond to avulsed, retracted enthesopathic spurs, residing 1.5 cm from the triceps tendon attachment. Other dystrophic soft tissue calcifications are possible. No additional fractures are suspected. No joint effusion. Soft tissues are swollen dorsal to the olecranon. XR/XR elbow RT min 3V IMPRESSION: 1. Multiple small ossific fragments posterior to the olecranon which could correspond to avulsed enthesopathic spurs, residing 1.5 cm from the triceps tendon attachment. Other dystrophic soft tissue calcifications are possible. Consider correlation with MRI of the elbow without contrast. 2. Soft tissue swelling at the olecranon. 3. Mild osteoarthritis. External Record Review External record reviewed: Inpatient record, Office record and Outpatient record Tests considered The following testing was considered but not selected: CT considered, not emergently indicated today Prescription Management I considered prescription management with: Pain Medication Discharge Plan Discharge Clinical Impression: Avulsion fracture Patient Disposition: Home, Self-Care Instructions: Elbow Fracture (ED) Additional Instructions: There is concern for ligament/tendon injury with multiple bony fragments seen on your x-ray Call the orthopedic office tomorrow to make an appointment. Where the provided a splint until your evaluated by Orthopedics. This can not get wet. Take the prescribed narcotic pain medication as needed for severe pain only. If you develop new or worsening symptoms call 911 or come back to the ER for further evaluation. EXAMINATION: XR ELBOW, RIGHT CLINICAL INFORMATION: Injury. Deformity over the olecranon. COMPARISON: None available. TECHNIQUE: AP, lateral, and oblique views of the right elbow. 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 Prominent enthesopathic spurs are present at the medial and lateral humeral condyles. Small enthesopathic spur at the triceps tendon insertion on the olecranon.. There are multiple small ossific fragments posterior to the olecranon which could correspond to avulsed, retracted enthesopathic spurs, residing 1.5 cm from the triceps tendon attachment. Other dystrophic soft tissue calcifications are possible. No additional fractures are suspected. No joint effusion. Soft tissues are swollen dorsal to the olecranon. XR/XR elbow RT min 3V IMPRESSION: 1. Multiple small ossific fragments posterior to the olecranon which could correspond to avulsed enthesopathic spurs, residing 1.5 cm from the triceps tendon attachment. Other dystrophic soft tissue calcifications are possible. Consider correlation with MRI of the elbow without contrast. 2. Soft tissue swelling at the olecranon. 3. Mild osteoarthritis. Prescriptions: New oxycodone 5 mg tablet 5 mg PO Q8H PRN (Reason: severe pain (scale score 7-10)) Qty: 8 0RF Rx Instructions: Partial Fill upon patient request. ibuprofen 600 mg tablet 600 mg PO Q8H PRN (Reason: pain) Qty: 20 0RF No Action tamsulosin [Flomax] 0.4 mg capsule 0.4 mg PO DAILY Qty: 30 0RF ondansetron 4 mg tablet,disintegrating 4 mg PO Q6H PRN (Reason: nausea and vomiting) Qty: 10 0RF celecoxib [Celebrex] 50 mg capsule 50 mg PO DAILY oxycodone 5 mg tablet 5 mg PO Q8H PRN (Reason: pain) Qty: 10 0RF Rx Instructions: Partial Fill upon patient request. methylprednisolone [Medrol (Homer)] 4 mg tablets,dose pack See Rx Instructions PO PER PKG DIR Qty: 21 0RF Rx Instructions: PO PER PKG DIR Referrals: [facility] [Provider Group] (EXAMINATION: XR ELBOW, RIGHT CLINICAL INFORMATION: Injury. Deformity over the olecranon. COMPARISON: None available. TECHNIQUE: AP, lateral, and oblique views of the right elbow. 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 Prominent enthesopathic spurs are present at the medial and lateral humeral condyles. Small enthesopathic spur at the triceps tendon insertion on the olecranon.. There are multiple small ossific fragments posterior to the olecranon which could correspond to avulsed, retracted enthesopathic spurs, residing 1.5 cm from the triceps tendon attachment. Other dystrophic soft tissue calcifications are possible. No additional fractures are suspected. No joint effusion. Soft tissues are swollen dorsal to the olecranon. XR/XR elbow RT min 3V IMPRESSION: 1. Multiple small ossific fragments posterior to the olecranon which could correspond to avulsed enthesopathic spurs, residing 1.5 cm from the triceps tendon attachment. Other dystrophic soft tissue calcifications are possible. Consider correlation with MRI of the elbow without contrast. 2. Soft tissue swelling at the olecranon. 3. Mild osteoarthritis.) Arya Merino MD [Primary Care Provider] - Interventions: ED Discharge Assessment Last Done: 10/09/23 00:55 Discharge Date/Time: 10/09/23 00:56 Print Language: Cameroonian
[2023-10-08 22:01] VITALS: BP 143/80; PULSE 76; RESP 16; TEMP 36.9; O2SAT 97
[2023-10-08 23:43] VITALS: BP 167/96; PULSE 65; RESP 16; TEMP 36.4; O2SAT 97
[2023-10-09 00:55] VITALS: BP 157/90; PULSE 69; RESP 16; TEMP 36.6; O2SAT 97
== END 2023-10-09 00:56 | disposition home or self-care (01) ==
PROVIDERS: Emergency Provider Emergency Medicine; PCP Internal Medicine
DX: S52.024A Nondisplaced fracture of olecranon process without intraarticular extension of right ulna, initial encounter for closed fracture (principal); M97.41XA Periprosthetic fracture around internal prosthetic right elbow joint, initial encounter; X58.XXXA Exposure to other specified factors, initial encounter; Y93.89 Activity, other specified; Y92.9 Unspecified place or not applicable; Y99.9 Unspecified external cause status; M25.521 Pain in right elbow
CPT/HCPCS: 73080; 99283; 99284

== ENCOUNTER 2023-10-14 10:50 | Outpatient (AMB) | payer OTHER, SELFPAY ==
--- NOTE | 2023-10-14 10:59 | A.OFFVIS_ITS ---
Vital Signs 10/14/23 11:58 Height 5 ft 11 in Weight 257 lb BMI 35.8 Intake Visit Reasons: FC - RT elbow avulsion fracture Intake Note: Guille a 62 year old 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 male who presents today for an evaluation of right elbow, DOI 10/08/23. Patient reports he was working on his car, pushing down with both hands using significant force when he heard and felt a pop. States he [place] [facility] [place] where xrays were taken and placed in a splint. Currently his pain is located in his elbow, and he has a muscle that is bulging. Denies numbness or tingling. Allergies ENVIRONMENTAL Allergy (Unknown, Uncoded 10/14/23 11:06) SNEEZING HPI HPI FC - RT elbow avulsion fracture: Details: 62-year-old 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 male who presents to the office today for evaluation of right elbow injury, 10/08/23. He reports he was working on his car, pushing down with both hands using ?significant force? when he heard and felt a ?pop? or a ?snap? in his right elbow. He denies any numbness or tingling. 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 Review of Systems Const All systems reviewed & are unremarkable except as noted in HPI and below Physical Exam Vital Signs: BMI result Body Mass Index 35.8 Const General: cooperative, healthy appearing, comfortable, no acute distress, well developed and alert Orientation/consciousness: patient oriented x3 HEENT Head: Yes normal to inspection, Yes normocephalic and Yes atraumatic Eyes General: appearance normal, both eyes and all related structures Resp Effort & Inspection: normal respiratory effort and able to speak in complete sentences Cardio Rate: regular rate Peripheral pulses: Peripheral pulses 2+ throughout GI Palpation (GI): Soft to palpation Skin Lesions: no lesions Rashes: no rashes Neuro General: patient oriented x3 Extrem Other: Right elbow: Normal to inspection. He has diffused swelling over the elbow that goes down to the forearm. He has tenderness along the triceps insertion. No pain with supination or pronation. He does express pain with activation of triceps. Slight defect along the triceps insertion. NVI. Results Reviewed Results Reviewed: XR elbow RT min 3V 10/08/23 IMPRESSION: 1. Multiple small ossific fragments posterior to the olecranon which could correspond to avulsed enthesopathic spurs, residing 1.5 cm from the triceps tendon attachment. Other dystrophic soft tissue calcifications are possible. Consider correlation with MRI of the elbow without contrast. 2. Soft tissue swelling at the olecranon. 3. Mild osteoarthritis. Assessment & Plan Assessment & Plan (1) Other injury of muscle, fascia and tendon of triceps, right arm, initial encounter: Code(s): S46.391A - Other injury of muscle, fascia and tendon of triceps, right arm, initial encounter Category: Medical Plan He can discontinue the use of splint. He will wear the sling for discomfort and protection. A STAT MRI of the right elbow was also ordered to further evaluate the integrity of triceps and bony fragment found on x-rays. He will remain out of work till his MRI is complete and determine the next step in his treatment. Orders: Orders MR elbow RT wo con 10/16/23 S46.391A - Other injury of muscle, fascia and tendon of triceps, right arm, initial encounter Patient Instructions: Scribed for Jarett Sampson PA-C, by Kvng Zepeda emergency medical technician, on 10/14/2023 at 11:00 AM EST.? I, Jarett Sampson PA-C, have personally reviewed and agree with the information entered by the scribe. Coding Level of Care Code Est Pt Level 3 (80553) Diagnoses Other injury of muscle, fascia and tendon of triceps, right arm, initial e ncounter S46.391A
[2023-10-14 11:58] VITALS: BMI 35.8
== END 2023-10-14 11:28 | disposition home or self-care (01) ==
PROVIDERS: PCP Internal Medicine; Visit Provider Physician Assistant
DX: S46.391A Other injury of muscle, fascia and tendon of triceps, right arm, initial encounter (principal)
CPT/HCPCS: 99213

== ENCOUNTER → 2023-10-14 10:50 | Outpatient (BNVA) | payer OTHER, SELFPAY | PROVIDERS: PCP Internal Medicine; Visit Provider Physician Assistant ==

== ENCOUNTER 2023-10-16 19:49 | Outpatient (REF) | payer OTHER, SELFPAY ==
--- NOTE | ~2023-10-16 | MR_ITS ---
EXAMINATION: MR ELBOW WITHOUT CONTRAST, RIGHT CLINICAL INFORMATION: Injury of the muscles, fascia, and tendons of the triceps. COMPARISON: Radiograph dated 10/09/2023. TECHNIQUE: MRI of the elbow was performed using routine sequences on a high-field scanner. FINDINGS: LIGAMENTS: Ulnar Collateral Ligament: Intact. Radial Collateral Ligament: A near complete tear of the radial collateral ligament measures 1.4 cm AP with a very thin band of residual intact fibers at the dorsal margin. TENDONS AND MUSCLES: Common Flexor: There is mild common flexor tendinosis with a small 4 x 3 mm interstitial partial tear. Common Extensor: The aforementioned tear of the radial collateral ligament extends into the overlying common extensor tendon, the majority of the which is torn. Chronic fragmented enthesopathic spurs are present at the lateral epicondyle measuring up to 7 mm in diameter. Biceps: Intact. Brachialis: Intact. Triceps: A high-grade tear of the insertion on the olecranon is essentially complete, measuring 2.6 x 1.4 cm in area with 2 to 3 mm of retraction of the torn fibers. A very thin band of residual intact fibers is present at the lateral margin. Surrounding soft tissues are edematous. BONE and ARTICULAR CARTILAGE: There is focal partial-thickness cartilage loss and full-thickness chondral fissuring at the trochlear ridge with more mild chondral thinning and fissuring at the trochlea. Small marginal osteophytes are present at the olecranon and coronoid process, as well as at the radial head. No acute fracture or malalignment. NERVES: Ulnar nerve is normal in appearance. JOINT FLUID: Trace joint effusion. No loose body. SOFT TISSUES: Marked subcutaneous edema is present at the elbow, most pronounced dorsally, with a 2.5 x 2.8 x 0.8 cm collection of fluid in the olecranon bursa, contiguous with the aforementioned triceps tendon tear. MR/MR elbow RT wo con IMPRESSION: 1. Acute, complete tear of the triceps tendon at its insertion. 2. Chronic near complete tears of the radial collateral ligament and common extensor tendon. 3. Mild common flexor tendinosis with a small interstitial partial tear. 4. 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
== END 2023-10-16 19:50 | disposition home or self-care (01) ==
LOC: HO.MRI 19:49
PROVIDERS: PCP Internal Medicine; Visit Provider Physician Assistant
DX: S46.391A Other injury of muscle, fascia and tendon of triceps, right arm, initial encounter (principal)
CPT/HCPCS: 73221

== ENCOUNTER 2023-10-22 12:55 | Outpatient (AMB) | payer OTHER, SELFPAY ==
--- NOTE | 2023-10-22 13:09 | A.OFFVIS_ITS ---
Intake Visit Reasons: OV-MRI ElbowRT review-discuss surgery? Intake Note: Guille is a 62 year old 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 male who presents today for an MRI Review of his right elbow and to discuss possible surgical intervention. DOI 10/08/23 Patient reports he was working on his car, pushing down with both hands using significant force when he heard and felt a pop. IMPRESSION: 1. Acute, complete tear of the triceps tendon at its insertion. 2. Chronic near complete tears of the radial collateral ligament and common extensor tendon. 3. Mild common flexor tendinosis with a small interstitial partial tear. 4. 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 Allergies ENVIRONMENTAL Allergy (Unknown, Uncoded 10/14/23 11:06) SNEEZING HPI HPI OV-MRI ElbowRT review-discuss surgery?: Details: Guille is a 62 year old 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 male who presents today for an MRI Review of his right elbow and to discuss possible surgical intervention. DOI 10/08/23 Patient reports he was working on his car, pushing down with both hands using significant force when he heard and felt a pop. He is right-hand dominant. 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 He states he has difficulty extending his elbow when his arm is abducted. 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 He has pain with resisted elbow extension. Skin is clean dry and intact and his sensation is intact to light touch. Results Reviewed Results Reviewed: I personally reviewed the MR images. IMPRESSION: 1. Acute, complete tear of the triceps tendon at its insertion. 2. Chronic near complete tears of the radial collateral ligament and common extensor tendon. 3. Mild common flexor tendinosis with a small interstitial partial tear. 4. 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 Assessment & Plan Assessment & Plan (1) Triceps tendon rupture: Code(s): S46.319A - Strain of muscle, fascia and tendon of triceps, unspecified arm, initial encounter Category: Medical Plan: This is a active 62-year-old RHD gentleman with a complete rupture of his right triceps tendon at its ulnar insertion. We had a long discussion regarding treatment options. Given the nature of the surgery and his activity level we have elected to fix this surgically. I explained to him the procedure as well as the risks, benefits and alternatives including, but not limited to infection, stiffness, pain, failure to regain full strength as well as medical complications associated with anesthesia and undergoing surgery. He expressed understanding and we will proceed forward accordingly. Coding Level of Care Code Est Pt Level 4 (44995) Diagnoses Triceps tendon rupture S46.319A
== END 2023-10-22 14:15 | disposition home or self-care (01) ==
PROVIDERS: PCP Internal Medicine; Visit Provider Orthopaedic Surgery
DX: S46.311A Strain of muscle, fascia and tendon of triceps, right arm, initial encounter (principal)
CPT/HCPCS: 99214

== ENCOUNTER → 2023-10-22 12:55 | Outpatient (BNVA) | payer OTHER, SELFPAY | PROVIDERS: PCP Internal Medicine; Visit Provider Orthopaedic Surgery ==

== ENCOUNTER 2023-10-27 09:06 | Day surgery (SDC) | payer OTHER, SELFPAY ==
--- NOTE | 2023-10-26 11:00 | P.CONAN_ITS ---
Documented by User: Le Fink NP 10/26/23 11:03 HPI - Anesthesia Eval Consult details Narrative: 62yo M for Right Tricep Tendon Repair PMFSH Active Problems Active Problems: All Active Problems Triceps tendon rupture (Acute) Other injury of muscle, fascia and tendon of triceps, right arm, initial encounter (Acute) Exposure to COVID-19 virus (Acute) URI (upper respiratory infection) (Acute) History of total right knee replacement (Acute) History of total left knee replacement (Acute) Past Medical History Medical History HLD (hyperlipidemia) Glucose intolerance Obesity Osteoarthritis Low back pain HTN (hypertension) Anxiety Surgical History Surgical History Hx of arthroscopy of shoulder History of total right knee replacement History of total left knee replacement Social History Social History Alcohol intake: current Alcohol intake frequency: a few times a week Alcohol type: beer Patient Tobacco Use Status: Never used Tobacco Use of substances other than those prescribed or required for medical reasons: No Are you DNR?: No Advance Directives: No Advance Directives Information Provided: Yes 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[employer], 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 [employer] Allergies Allergy/AdvReac Type Severity Reaction Status Date / Time ENVIRONMENTAL Allergy Unknown SNEEZING Uncoded 10/27/23 10:28 Home Medications ?Medication ?Instructions ?Recorded ?Confirmed ?Last Taken ?Type atorvastatin 40 mg tablet 40 mg PO DAILY 10/14/23 10/27/23 10/27/23 07:45 History buspirone 7.5 mg tablet 7.5 mg PO BID 10/14/23 10/27/23 10/27/23 07:45 History clonidine HCl 0.2 mg tablet 0.2 mg PO BID 10/14/23 10/27/23 10/27/23 07:45 History hydroxyzine HCl 25 mg tablet 25 mg PO QID 10/14/23 10/27/23 Unknown History meloxicam 15 mg tablet 15 mg PO DAILY 10/14/23 10/27/23 10/27/23 07:45 History metformin 500 mg tablet 500 mg PO DAILY 10/14/23 10/27/23 10/27/23 07:45 History Exam Pertinent Lab Results Pertinent Lab Results: CBC and BMP 08/2023 from [facility] Documented by User: Juliette Raphael MD 10/27/23 12:12 [facility] Past Medical History Medical History HLD (hyperlipidemia) Glucose intolerance Obesity Osteoarthritis Low back pain HTN (hypertension) Anxiety Family History Family history of problems with anesthesia: No Surgical History Surgical History Hx of arthroscopy of shoulder History of total right knee replacement History of total left knee replacement History of Problems with Anesthesia: No Social History Social History Alcohol intake: current Alcohol intake frequency: a few times a week Alcohol type: beer Patient Tobacco Use Status: Never used Tobacco Use of substances other than those prescribed or required for medical reasons: No Are you DNR?: No Advance Directives: No Advance Directives Information Provided: Yes 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[employer], 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 Meds Allergies Allergy/AdvReac Type Severity Reaction Status Date / Time ENVIRONMENTAL Allergy Unknown SNEEZING Uncoded 10/27/23 10:28 Home Medications ?Medication ?Instructions ?Recorded ?Confirmed ?Last Taken ?Type atorvastatin 40 mg tablet 40 mg PO DAILY 10/14/23 10/27/23 10/27/23 07:45 History buspirone 7.5 mg tablet 7.5 mg PO BID 10/14/23 10/27/23 10/27/23 07:45 History clonidine HCl 0.2 mg tablet 0.2 mg PO BID 10/14/23 10/27/23 10/27/23 07:45 History hydroxyzine HCl 25 mg tablet 25 mg PO QID 10/14/23 10/27/23 Unknown History meloxicam 15 mg tablet 15 mg PO DAILY 10/14/23 10/27/23 10/27/23 07:45 History metformin 500 mg tablet 500 mg PO DAILY 10/14/23 10/27/23 10/27/23 07:45 History Exam Airway Mallampati Class: III TM Dist: <=3cm Neck ROM: Limited Heart: rrr Lungs: cta Assessment and Plan Assessment Anesthesia Assessment: Anesthesia Plan Discussed Final Anesthetic Review Family History of Problems with Anesthesia: No History of Problems with Anesthesia: No NPO: Yes ASA Class: III Final Preanesthetic Review: No Changes in Pt Med Stat, Meds/Allgs Chart Reviewed, Consent Obtained/Reviewed and Anes Risks/Benef Reviewed Patient Risk: Intermediate Procedure Risk: Intermediate Anesthetic Plan Anesthetic Plan: GA and Regional Block Disposition: Standard PACU
[2023-10-27] VITALS (12 sets, daily range): BP systolic 123–152; BP diastolic 68–84; PULSE 60–79; RESP 12–20; TEMP 36.6–36.9; O2SAT 94–98; BMI 34.9
[2023-10-27 10:39] LABS: Glucose, Whole Blood 120 mg/dL (60-115)
[2023-10-27] MEDS: Lactated Ringers 1,000 ML 100 ML IVCONT (10:53)
--- NOTE | 2023-10-27 10:58 | MHC.SHP ---
Pre-Procedural Eval Section A - 24 Hr Update-Section A only Date of Service: 10/27/23 The patient is an INPATIENT: No Changes since office visit: No Cold of Flu in the past 2 weeks, No New Medical Problems, No Changes in Medication and No Patient answered all questions The patient has been examined within 24 hours of the surgical procedure. The History & Physical has been completed within 30 days and I have reviewed it.: Yes Section B - Complete if H&P > 30 days Chief Complaint: Laceration of muscle, fascia and tendon of triceps Allergies: Allergies Allergy/AdvReac Type Severity Reaction Status Date / Time ENVIRONMENTAL Allergy Unknown SNEEZING Uncoded 10/27/23 10:28 Plan I have reviewed the history and physical and performed a pertinent physical examination on my patient. No changes have occurred unless specified. Time Spent With Patient Time: Total time managing care of this patient today ____ minutes.
[2023-10-27] MEDS: fentaNYL citrate/PF 100 MCG/2 ML VIAL 50 MCG IVPUSH ×4 (14:23→14:47)
[2023-10-27] MEDS: ondansetron HCL 4 MG/2 ML VIAL IVPUSH (15:15)
--- NOTE | 2023-10-27 15:25 | PM.OP ---
Brief Operative Note Date of Service: 10/27/23 Pre-op diagnosis: Right triceps tear Post-op diagnosis: same Procedure: Right triceps repair Implants: Boone and Nephew suture anchor x 4 Surgeon: Chad Thacker MD Anesthesia: GLMA and regional Was an Foreign Food Cook Specialty used for this Procedure?: Yes Foreign Food Cook Specialty: Jarett Sampson Estimated blood loss (mL): 50 IV fluids (mL): 750 Pathology: none sent Condition: stable Disposition: PACU
--- NOTE | 2023-11-01 08:20 | W.PM.OPN ---
Operative Note Operative Note Date of Service: 10/27/23 Narrative: Date of Service: 10/27/23 Pre-op diagnosis: Right triceps tear Post-op diagnosis: same Procedure: Right triceps repair Implants: Boone and Nephew suture anchor x 4 Surgeon: Chad Thacker MD Anesthesia: GLMA and regional Was an Repairer Pump used for this Procedure?: Yes Repairer Pump: Jarett Sampson Estimated blood loss (mL): 50 IV fluids (mL): 750 Pathology: none sent Condition: stable Disposition: PACU Procedure in detail: Patient was brought to the operating room and placed supine on the surgical table. He was placed in the left modified lateral decubitus position and prepped and draped in standard sterile fashion and a time out was called to identify proper site, proper procedure and IV antibiotics per weight were administered. I made a standard posterior incision over the distal triceps. Full thickness flaps were taken down to the tip of the olecranon. There was a complete avulsion of the triceps off the olecranon. The medial and lateral fasical attachments remained. I debrided the end of the triceps tendon and the insertion site ( down to bleeding bone). I then inserted two all suture anchors proximally into the olecranon and ran the attached suture tape through the triceps tendon and then brought the four limbs of tape down to two knotless anchors distally. This reproduced the triceps anatomically. I took the elbow through full ROM and was satisfied with the stability. I then irrigated copiously and closed with absorbable suture and matias. Sterile dressings were applied and the patient was extubated and brought to the recovery room in stable condition. There were no known complications.
== END 2023-10-27 15:56 | disposition home or self-care (01) ==
PROVIDERS: PCP Internal Medicine; Visit Provider Orthopaedic Surgery
PROC: (CPT 24341; principal; 2023-10-27 12:40)
DX: S46.321A Laceration of muscle, fascia and tendon of triceps, right arm, initial encounter (principal); I10 Essential (primary) hypertension; E74.39 Other disorders of intestinal carbohydrate absorption; X50.9XXA Other and unspecified overexertion or strenuous movements or postures, initial encounter; Y93.89 Activity, other specified; Y92.9 Unspecified place or not applicable; Y99.9 Unspecified external cause status
CPT/HCPCS: 24341; 82947; C1713; J0131; J0665; J0690; J1100; J2250; J2405; J2704; J2795; J3010

== ENCOUNTER → 2023-10-27 09:06 | Outpatient (BNV) | payer OTHER, SELFPAY | PROVIDERS: PCP Internal Medicine; Visit Provider Orthopaedic Surgery | DX: S46.311A Strain of muscle, fascia and tendon of triceps, right arm, initial encounter (principal) | CPT/HCPCS: 24342 ==

== ENCOUNTER 2023-10-30 08:29 | Outpatient (AMB) | payer OTHER, SELFPAY ==
--- NOTE | 2023-10-30 08:33 | A.OFFVIS_ITS ---
Vital Signs 10/30/23 08:40 Handedness Right Intake Visit Reasons: PO RT tricep repair 10/27/23 NE Intake Note: Guille is a 62 year old 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 male who presents today for a post operative visit s/p Right tricep repair 10/27/23 NE. Patient reports he is very sore and continues the pain medication for relief. Patient does not need a refill on hydrocodone yet but is requesting another prescription sent so it can be ready when he needs to fill it. Allergies Seasonal Allergies Allergy (Mild, Verified 10/30/23 08:40) Sneezing ENVIRONMENTAL Allergy (Unknown, Uncoded 10/27/23 10:28) SNEEZING HPI HPI PO RT tricep repair 10/27/23 NE: Details: 62-year-old 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 male who returns to the office today for post-op right triceps repair, 10/27/[address] Thacker. He states he has a lot of soreness in hi triceps however he finds relief with the pain medication. He does not need a refill on hydrocodone yet but he is requesting another prescription so that it can be ready when he needs to fill it. He has no other concerns today. 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 No erythema. He has mild swelling around the incision site. No drainage. NVI. Assessment & Plan Assessment & Plan (1) Triceps tendon rupture: Code(s): S46.319A - Strain of muscle, fascia and tendon of triceps, unspecified arm, initial encounter Category: Medical Qualifiers: Encounter type: subsequent encounter Laterality: right Qualified Code(s): S46.311D - Strain of muscle, fascia and tendon of triceps, right arm, subsequent encounter Plan The incision was cleaned and redressed. He was placed in an elbow ROM brace 0-30 degrees which he will wear at all times. I did stress the importance of avoiding lifting and resistance activities on his RUE. He did mention that he is driving and using his right hand for fine motor activities like wiring his car which I was not extremely keen with. I did explain to him that repetitive motions with hand could cause increased sheikh and swelling around his incision site which may delay wound healing. He does understand all this and will see me back in 2 weeks with new x-rays and staple removal, sooner if needed. ? Patient Instructions: Scribed for Jarett Sampson PA-C, by Kvng Zepeda medical assistant dermatology, on 10/30/2023 at 8:45 AM EST.? I, Jarett Sampson PA-C, have personally reviewed and agree with the information entered by the scribe. Coding Level of Care Code Global (66509) Diagnoses Rupture of right triceps tendon, subsequent encounter S46.311D Encounter type: subsequent encounter Laterality: right
== END 2023-10-30 09:08 | disposition home or self-care (01) ==
PROVIDERS: PCP Internal Medicine; Visit Provider Physician Assistant
DX: S46.311D Strain of muscle, fascia and tendon of triceps, right arm, subsequent encounter (principal)
CPT/HCPCS: 99024

== ENCOUNTER → 2023-10-30 08:29 | Outpatient (BNVA) | payer OTHER, SELFPAY | PROVIDERS: PCP Internal Medicine; Visit Provider Physician Assistant ==

== ENCOUNTER 2023-11-05 14:38 | Outpatient (AMB) | payer OTHER, SELFPAY ==
--- NOTE | 2023-11-05 14:51 | A.OFFVIS_ITS ---
Intake Visit Reasons: PO RT tricep repair 10/27/23 NE Intake Note: Guille is a 62 year old 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 male who presents today for a post operative visit s/p right tricep repair on 10/27/23 NE. Patient reports he is doing well, states mild pain. He removed his bandage due to coming apart. Allergies Seasonal Allergies Allergy (Mild, Verified 11/05/23 14:54) Sneezing ENVIRONMENTAL Allergy (Unknown, Uncoded 11/05/23 14:54) SNEEZING Medication List - Last Reconciled 11/05/23 by Jarett Sampson PA-C atorvastatin 40 mg PO DAILY buspirone 7.5 mg PO BID clonidine HCl 0.2 mg PO BID hydrocodone-acetaminophen 5-325 mg 1 tab PO Q8H PRN 7 days hydroxyzine HCl 25 mg PO QID meloxicam 15 mg PO DAILY metformin 500 mg PO DAILY HPI HPI PO RT tricep repair 10/27/23 NE: Details: 62-year-old 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 male who returns to the office today for post-op right triceps repair, 10/27/[address] Thacker. He states he has mild pain in his triceps however he is doing well overall. He reports he removed the bandage as they were falling apart. He has no other concerns today. 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 No erythema. He has mild swelling around the incision site. No drainage. NVI. Assessment & Plan Assessment & Plan (1) Triceps tendon rupture: Code(s): S46.319A - Strain of muscle, fascia and tendon of triceps, unspecified arm, initial encounter Category: Medical Qualifiers: Encounter type: subsequent encounter Laterality: right Qualified Code(s): S46.311D - Strain of muscle, fascia and tendon of triceps, right arm, subsequent encounter Plan: full exten 90 0-90 return in 16 days Plan Tyree will remain intact for the next 5 days. He will open his brace from 0-90 degrees. He will avoid any type of aggressive pushing or resistance activities and return in 2 weeks for routine post-op appointment, sooner if needed. Patient Instructions: Scribed for Jarett Sampson PA-C, by Kvng Zepeda behavioral medical director, on 11/05/2023 at 2:45 PM EST.? I, Jarett Sampson PA-C, have personally reviewed and agree with the information entered by the scribe. Coding Level of Care Code Global (31190) Diagnoses Rupture of right triceps tendon, subsequent encounter S46.311D Encounter type: subsequent encounter Laterality: right
== END 2023-11-05 15:52 | disposition home or self-care (01) ==
PROVIDERS: PCP Internal Medicine; Visit Provider Physician Assistant
DX: S46.311D Strain of muscle, fascia and tendon of triceps, right arm, subsequent encounter (principal)
CPT/HCPCS: 99024

== ENCOUNTER → 2023-11-05 14:38 | Outpatient (BNVA) | payer OTHER, SELFPAY | PROVIDERS: PCP Internal Medicine; Visit Provider Physician Assistant ==

== ENCOUNTER 2023-11-12 10:38 | Outpatient (AMB) | payer OTHER, SELFPAY ==
--- NOTE | 2023-11-12 10:52 | MHC.OFFVIS ---
Intake Visit Reasons: PO-RT tricep repair 10/27/23 NE-staple removal Intake Note: Guille is a 62 year old male who presents today for a post op appointment s/p RT tricep repair 10/27/23 NE. Patient reports he is doing well, states discomfort where matias are making it difficult to sleep. Allergies Seasonal Allergies Allergy (Mild, Verified 11/12/23 10:54) Sneezing ENVIRONMENTAL Allergy (Unknown, Uncoded 11/12/23 10:54) SNEEZING HPI HPI PO-RT tricep repair 10/27/23 NE-staple removal: Details: 62-year-old 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 male who presents in the office today 16 days status post right triceps repair, which was performed on 10/27/[address] Thacker. The patient was last seen in the office on 11/05/2023 by Jarett Sampson PA-C when the brace was opened from 0-90 degrees. He was instructed to avoid aggressive pushing or resistance activities. ? ? While in the office today, the patient reports he is doing well. He claims to have discomfort where the matias are located, causing him difficulty sleeping. ? 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 [place] are intact. No surrounding erythema or drainage. No signs of infection.?NVI.? Assessment & Plan Assessment & Plan (1) Triceps tendon rupture: Comment: Right triceps repair 10/27/2023 NE Code(s): S46.319A - Strain of muscle, fascia and tendon of triceps, unspecified arm, initial encounter Category: Surgical Qualifiers: Encounter type: subsequent encounter Laterality: right Qualified Code(s): S46.311D - Strain of muscle, fascia and tendon of triceps, right arm, subsequent encounter Plan Mr. Zaragoza is a 62-year-old 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 male who presents in the office today 16 days status post right triceps repair, which was performed on 10/27/[address] Thacker. The patient was last seen in the office on 11/05/2023 by Jarett Sampson PA-C when the brace was opened from 0-90 degrees. He was instructed to avoid aggressive pushing or resistance activities. ? ? While in the office today, the patient reports he is doing well. He claims to have discomfort where the matias are located, causing him difficulty sleeping.? ? [place] were removed and steri-stripes were applied. The patient was placed back into the elbow brace. He was supplied with a work note stating he may return to work on 11/23/2023 with no use of the right upper extremity and he must remain in the brace at all time. Follow-up will be at his regularly scheduled appointment on 11/26/2023 with Jarett Sampson PA-C, or sooner if needed. ? Patient Instructions: Scribed by Nory Hwang medical health researcher, for Char Gamez PA-C on 11/12/2023 at 10:40 am, EST.? Coding Level of Care Code Global (06627) Diagnoses Rupture of right triceps tendon, subsequent encounter S46.311D Encounter type: subsequent encounter Laterality: right
== END 2023-11-12 11:34 | disposition home or self-care (01) ==
LOC: HO.HOS 10:38
PROVIDERS: PCP Internal Medicine; Visit Provider Physician Assistant
DX: S46.311D Strain of muscle, fascia and tendon of triceps, right arm, subsequent encounter (principal)
CPT/HCPCS: 99024

== ENCOUNTER → 2023-11-12 10:38 | Outpatient (BNVA) | payer OTHER, SELFPAY | PROVIDERS: PCP Internal Medicine; Visit Provider Physician Assistant ==

== ENCOUNTER 2023-11-26 13:52 | Outpatient (AMB) | payer OTHER, SELFPAY ==
--- NOTE | 2023-11-26 13:58 | MHC.OFFVIS ---
Intake Visit Reasons: PO RT tricep repair 10/27/23 NE Intake Note: Guille a 62 year old male who presents today for a post operative visit s/p right tricep repair on 10/27/23 with NE. Patient reports he is doing well, states he discontinued use of arm brace. Allergies Seasonal Allergies Allergy (Mild, Verified 11/26/23 14:02) Sneezing ENVIRONMENTAL Allergy (Unknown, Uncoded 11/26/23 14:02) SNEEZING HPI HPI PO RT tricep repair 10/27/23 NE: Details: 62-year-old male who returns to the office today for post-op right triceps repair, 10/27/[address] Thacker. He states he has no pain and is doing well overall. He has discontinued the use of his arm brace. He has no other concerns today. 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 No redness or swelling. He has full flexion and extension. He can perform supination and pronation without pain. NVI. Assessment & Plan Assessment & Plan (1) Triceps tendon rupture: Comment: Right triceps repair 10/27/2023 NE Code(s): S46.319A - Strain of muscle, fascia and tendon of triceps, unspecified arm, initial encounter Category: Surgical Qualifiers: Encounter type: subsequent encounter Laterality: right Qualified Code(s): S46.311D - Strain of muscle, fascia and tendon of triceps, right arm, subsequent encounter Plan He will continue to increase activities as tolerated. I did give him a handout of home exercises. I did stress the importance of no active pushing of his hand with extension for the next 6 weeks. He will return in 6 weeks for a follow-up, unless he is doing well, he will follow-up as needed. Patient Instructions: Scribed for Jarett Sampson PA-C, by Kvng Zepeda biomedical engineering technician, on 11/26/2023 at 2:00 PM EST.? I, Jarett Sampson PA-C, have personally reviewed and agree with the information entered by the scribe. Coding Level of Care Code Global (68038) Diagnoses Rupture of right triceps tendon, subsequent encounter S46.311D Encounter type: subsequent encounter Laterality: right
== END 2023-11-26 16:00 | disposition home or self-care (01) ==
PROVIDERS: PCP Internal Medicine; Visit Provider Physician Assistant
DX: S46.311D Strain of muscle, fascia and tendon of triceps, right arm, subsequent encounter (principal)
CPT/HCPCS: 99024

== ENCOUNTER → 2023-11-26 13:52 | Outpatient (BNVA) | payer OTHER, SELFPAY | PROVIDERS: PCP Internal Medicine; Visit Provider Physician Assistant ==